=== PATIENT | female | born 1995 | race Caucasian/White ===

== ENCOUNTER 2016-06-21 17:59 | Inpatient (IN) | payer OTHER ==
[~2016-06-21] VITALS: Ht 154.9 cm; Wt 91.6 kg
[2016-06-21] VITALS (10 sets, daily range): BP systolic 93–129; BP diastolic 55–94
[~2016-06-21 17:59] MED LIST: ALBU8.5H4 IH; BUDE10.2 IH; EPIN0.3P3 IJ; ESCI10TA PO; ESCITALOPRAM 10 MG TABLET; FLUT16SP; MONT10TA22 PO; PRED20TA PO
[2016-06-21] MEDS ORDERED: IV SET PRIMARY 1 EA INFUS.SET MC ONE ×2 (18:02→18:05)
[2016-06-21] MEDS ORDERED: IV NS 0.9% 2,000 ML ONE ×2 (18:02→18:05)
[2016-06-21] MEDS ORDERED: PROPOFOL 100 ML IV ONE ×3 (18:05→23:20)
[2016-06-21] MEDS ORDERED: IV SET PRIMARY PUMP SET 1 EA INFUS.SET MC ONE ×2 (18:05→18:09)
[2016-06-21] MEDS ORDERED: Magnesium 1GM/D5W 100ML PREMIX 200 ML IV ONE ×2 (18:06→18:10)
[2016-06-21] MEDS ORDERED: IV NS 0.9% 1,000 ML IV ONE (18:06)
[2016-06-21] MEDS ORDERED: DEXAMETHASONE SOD PHOSPHATE 10 MG/ML VIAL ONE (18:10)
[2016-06-21] MEDS: PROPOFOL 100 ML IV PRN ×3 (18:15→23:44)
[2016-06-21 18:17] LABS: BASOPHILS % (AUTO) 0.4 % (0.0-2.0); DIFF TOTAL % 100 %; EOSINOPHILS # (AUTO) 0.4 /CMM (0.0-0.7); EOSINOPHILS % (AUTO) 3.7 % (0.0-6.0); HEMATOCRIT 46 % (33-45); HEMOGLOBIN 14.9 g/dL (11.5-14.8); LYMPHOCYTES # (AUTO) 2.8 /CMM (0.8-4.8); LYMPHOCYTES % (AUTO) 23.9 % (20.0-44.0); MEAN CORPUSCULAR HEMOGLOBIN 26 PG (26.0-33.0); MEAN CORPUSCULAR HGB CONC 32 g/dl (31.0-36.0); MEAN CORPUSCULAR VOLUME 80 fL (82-100); MONOCYTES # (AUTO) 0.2 /CMM (0.1-1.30); MONOCYTES % (AUTO) 1.5 % (2.0-12.0); NEUTROPHILS # (AUTO) 8.5 /CMM (1.8-8.9); NEUTROPHILS % (AUTO) 70.5 % (43.0-81.0); PLATELET COUNT (AUTO) 372 /CMM (150-450); RED BLOOD CELL COUNT(AUTO) 5.71 MIL/uL (4.0-5.2); WHITE BLOOD COUNT (AUTO) 11.9 K/uL (4.3-11.0)
[2016-06-21] MEDS ORDERED: MORPHINE SULFATE INJ 4 MG/ML DISP.SYRIN ONE (18:22)
[2016-06-21] MEDS ORDERED: LORAZEPAM INJ 2 MG/ML VIAL ONE (18:22)
[2016-06-21 18:24] LABS: ANION GAP 19 (5-14); CALCIUM, SERUM 8.9 mg/dL (8.5-10.1); CARBON DIOXIDE 20 mmol/L (21-32); CHLORIDE 101 mmol/L (98-107); GFR 71 mL/min (>60); GLUCOSE 155 mg/dL (74-106); POTASSIUM 5.4 mmol/L (3.5-5.1); SODIUM SERUM 135 mmol/L (136-145); UREA NITROGEN, BLOOD 13 mg/dL (7-18)
[2016-06-21] MEDS ORDERED: DEXAMETHASONE SOD PHOSPHATE 10 MG/ML VIAL IV ONE (18:30)
[2016-06-21] MEDS ORDERED: LORAZEPAM INJ 2 MG/ML VIAL IV ONE (18:30)
[2016-06-21] MEDS ORDERED: IPRATROPIUM NEB FS 0.5 MG/2.5 ML AMPUL.NEB NEB ONE (18:30)
[2016-06-21] MEDS ORDERED: VECURONIUM 10 MG VIAL IV ONE ×2 (18:30→20:47)
[2016-06-21] MEDS ORDERED: ETOMIDATE 2 MG/ML VIAL IV ONE ×2 (18:30→20:47)
[2016-06-21] MEDS ORDERED: ALBUTEROL FS 2.5 MG/3 ML VIAL.NEB CONTNEB ONE (18:30)
[2016-06-21] MEDS ORDERED: SUCCINYLCHOLINE CHLORIDE 20 MG/ML VIAL IV ONE ×2 (18:30→20:47)
[2016-06-21] MEDS ORDERED: MORPHINE SULFATE INJ 10 MG/ML DISP.SYRIN IV ONE (18:30)
[2016-06-21 18:32] LABS: TROPONIN I < 0.017 ng/mL (0.00-0.056)
[2016-06-21 19:14] LABS: ABG HCO3 19.3 mmol/L; ABG PCO2 46.5 mmHg (35.0-45.0); ABG PH 7.237 (7.350-7.450); ABG PO2 143.6 mmHg (75.0-100.0); ABG TOTAL HEMOGLOBIN 13.5 G/dL (12.0-16.0); ALLEN TEST Pass; AaDO2 522.9 mmHg; O2Hb 96.3 % (94.0-97.0)
[2016-06-21 19:24] LABS: PHENCYCLIDINE SCREEN,URINE NEGATIVE (NEGATIVE)
[2016-06-21 19:49] LABS: CANNABINOID, URINE POSITIVE (NEGATIVE)
[2016-06-21] MEDS ORDERED: HYDROCODONE/APAP 5/325MG 1 EACH TABLET PO PRN (20:00)
[2016-06-21] MEDS ORDERED: Z GUARD REMEDY 2 OZ OINT TP PRN (20:00)
[2016-06-21] MEDS ORDERED: MAGNESIUM HYDROXIDE 30 ML UDC PO PRN (20:00)
[2016-06-21] MEDS ORDERED: ACETAMINOPHEN 325 MG TABLET PO PRN (20:00)
[2016-06-21] MEDS: IPRATROPIUM NEB FS 0.5 MG/2.5 ML AMPUL.NEB NEB SCH (23:31)
[2016-06-21] MEDS: ALBUTEROL FS 2.5 MG/3 ML VIAL.NEB NEB SCH (23:32)
[2016-06-22] VITALS (45 sets, daily range): BP systolic 99–149; BP diastolic 54–76
[2016-06-22] MEDS: ALBUTEROL FS 2.5 MG/3 ML VIAL.NEB NEB SCH ×6 (02:58→23:42)
[2016-06-22] MEDS: IPRATROPIUM NEB FS 0.5 MG/2.5 ML AMPUL.NEB NEB SCH ×6 (02:58→23:42)
[2016-06-22] MEDS ORDERED: PROPOFOL 100 ML IV ONE (03:07)
[2016-06-22] MEDS: PROPOFOL 100 ML IV PRN ×9 (03:45→21:04)
[2016-06-22 05:20] LABS: BASOPHILS % (AUTO) 0.1 % (0.0-2.0); DIFF TOTAL % 100 %; HEMATOCRIT 42 % (33-45); HEMOGLOBIN 13.5 g/dL (11.5-14.8); LYMPHOCYTES # (AUTO) 0.8 /CMM (0.8-4.8); LYMPHOCYTES % (AUTO) 6.5 % (20.0-44.0); MEAN CORPUSCULAR HEMOGLOBIN 26 PG (26.0-33.0); MEAN CORPUSCULAR HGB CONC 33 g/dl (31.0-36.0); MEAN CORPUSCULAR VOLUME 80 fL (82-100); MONOCYTES # (AUTO) 0.1 /CMM (0.1-1.30); MONOCYTES % (AUTO) 0.9 % (2.0-12.0); NEUTROPHILS # (AUTO) 11.1 /CMM (1.8-8.9); NEUTROPHILS % (AUTO) 92.5 % (43.0-81.0); PLATELET COUNT (AUTO) 370 /CMM (150-450); RED BLOOD CELL COUNT(AUTO) 5.24 MIL/uL (4.0-5.2); WHITE BLOOD COUNT (AUTO) 11.9 K/uL (4.3-11.0)
[2016-06-22 05:40] LABS: CALCIUM, SERUM 8.6 mg/dL (8.5-10.1); CREATININE 0.8 mg/dL (0.6-1.3); POTASSIUM 3.9 mmol/L (3.5-5.1)
[2016-06-22] MEDS: ONDANSETRON HCL/PF 4 MG/2 ML VIAL IVP PRN ×2 (05:57→13:37)
[2016-06-22] MEDS: methylPREDNISolone SOD SUCC 40 MG/ML VIAL IV SCH ×2 (08:09→16:17)
[2016-06-22] MEDS: ESCITALOPRAM OXALATE (10 MG) 10 MG TABLET PO SCH (08:09)
[2016-06-22] MEDS: PANTOPRAZOLE 40 MG VIAL IV SCH (08:09)
[2016-06-22] MEDS: ENOXAPARIN SODIUM 40 MG/0.4 ML DISP.SYRIN SQ SCH (08:34)
[2016-06-22 08:58] LABS: ABG BASE EXCESS -3.4 mmol/L; ABG HCO3 19.5 mmol/L; ABG PCO2 29.6 mmHg (35.0-45.0); ABG PH 7.437 (7.350-7.450); ABG PO2 72.7 mmHg (75.0-100.0); ABG TOTAL HEMOGLOBIN 14.2 G/dL (12.0-16.0); ALLEN TEST Pass; AaDO2 322.5 mmHg; O2Hb 92.9 % (94.0-97.0)
[2016-06-22] MEDS ORDERED: LORAZEPAM INJ 2 MG/ML VIAL IV PRN (09:00)
[2016-06-22] MEDS: LORAZEPAM INJ 2 MG/ML VIAL IV PRN ×4 (09:26→21:05)
[2016-06-22] MEDS ORDERED: IV SET PRIMARY PUMP SET 1 EA INFUS.SET MC ONE ×3 (09:49→20:58)
[2016-06-22] MEDS ORDERED: FEE PK DOSING 1 MIN EA MC ONE (10:51)
[2016-06-22] MEDS ORDERED: IV NS 0.9% 250 ML IV ONE (12:58)
[2016-06-22] MEDS ORDERED: SECONDARY IV SET 1 EA INFUS.SET MC ONE ×3 (12:58→17:02)
[2016-06-22] MEDS: PIPERACILLIN /TAZOBACTAM 3.375 G in IV D5W 50 ML IV SCH ×3 (13:04→23:20)
[2016-06-22] MEDS: VANCOMYCIN 1.25 GM in IV D5W 500 ML IV SCH ×2 (14:19→21:04)
[2016-06-22 15:37] LABS: KETONES,URINE 2+ (NEGATIVE); LEUKOCYTE ESTERASE ,URINE NEGATIVE (NEGATIVE)
[2016-06-22 15:54] LABS: ADD UA MICROSCOPIC YES
[2016-06-22 15:55] LABS: ADD URINE CULTURE NO; URIC ACID CRYSTALS,URINE Rare /HPF (None Seen); WBC,URINE 0-2 /HPF (0-3)
[2016-06-22] MEDS ORDERED: Sodium Phosphate 15 MMOL in IV D5W 250 ML IV ONE (17:00)
[2016-06-22] MEDS ORDERED: ONDANSETRON HCL/PF 4 MG/2 ML VIAL IV ONE (17:30)
[2016-06-22] MEDS ORDERED: SERT100T PO (22:56)
[2016-06-22] MEDS ORDERED: ARIP20TA8 PO (22:56)
[2016-06-23] VITALS (43 sets, daily range): BP systolic 118–154; BP diastolic 53–87
[2016-06-23] MEDS: PROPOFOL 100 ML IV PRN ×10 (00:27→22:13)
[2016-06-23] MEDS: VANCOMYCIN 1.25 GM in IV D5W 500 ML IV SCH ×3 (03:06→18:48)
[2016-06-23] MEDS: ALBUTEROL FS 2.5 MG/3 ML VIAL.NEB NEB SCH ×6 (03:48→23:20)
[2016-06-23] MEDS: IPRATROPIUM NEB FS 0.5 MG/2.5 ML AMPUL.NEB NEB SCH ×6 (03:48→23:20)
[2016-06-23 05:29] LABS: BASOPHILS % (AUTO) 0.1 % (0.0-2.0); DIFF TOTAL % 100 %; HEMATOCRIT 40 % (33-45); HEMOGLOBIN 12.9 g/dL (11.5-14.8); LYMPHOCYTES # (AUTO) 1.8 /CMM (0.8-4.8); LYMPHOCYTES % (AUTO) 11.4 % (20.0-44.0); MEAN CORPUSCULAR HEMOGLOBIN 26 PG (26.0-33.0); MEAN CORPUSCULAR HGB CONC 32 g/dl (31.0-36.0); MEAN CORPUSCULAR VOLUME 80 fL (82-100); MONOCYTES # (AUTO) 0.9 /CMM (0.1-1.30); MONOCYTES % (AUTO) 5.7 % (2.0-12.0); NEUTROPHILS # (AUTO) 13.4 /CMM (1.8-8.9); NEUTROPHILS % (AUTO) 82.8 % (43.0-81.0); PLATELET COUNT (AUTO) 383 /CMM (150-450); RED BLOOD CELL COUNT(AUTO) 4.98 MIL/uL (4.0-5.2); WHITE BLOOD COUNT (AUTO) 16.2 K/uL (4.3-11.0)
[2016-06-23] MEDS: PIPERACILLIN /TAZOBACTAM 3.375 G in IV D5W 50 ML IV SCH ×3 (05:39→17:11)
[2016-06-23 05:59] LABS: CALCIUM, SERUM 8.3 mg/dL (8.5-10.1); CREATININE 0.8 mg/dL (0.6-1.3); POTASSIUM 3.5 mmol/L (3.5-5.1)
[2016-06-23] MEDS: PANTOPRAZOLE 40 MG VIAL IV SCH (08:08)
[2016-06-23] MEDS: ONDANSETRON HCL/PF 4 MG/2 ML VIAL IVP PRN (08:08)
[2016-06-23] MEDS: methylPREDNISolone SOD SUCC 40 MG/ML VIAL IV SCH ×2 (08:30→16:39)
[2016-06-23] MEDS: ESCITALOPRAM OXALATE (10 MG) 10 MG TABLET PO SCH (08:31)
[2016-06-23] MEDS: ENOXAPARIN SODIUM 40 MG/0.4 ML DISP.SYRIN SQ SCH (08:34)
[2016-06-23] MEDS ORDERED: IV SET PRIMARY PUMP SET 1 EA INFUS.SET MC ONE ×2 (09:39→14:21)
[2016-06-23] MEDS ORDERED: FUROSEMIDE 20 MG/2 ML VIAL IV ONE (10:18)
[2016-06-23] MEDS: LORAZEPAM INJ 2 MG/ML VIAL IV PRN ×3 (10:54→20:48)
[2016-06-23] MEDS ORDERED: SECONDARY IV SET 1 EA INFUS.SET MC ONE (11:02)
[2016-06-23] MEDS: Magnesium 1GM/D5W 100ML PREMIX 100 ML IV SCH ×4 (14:32→17:10)
[2016-06-23 16:01] LABS: CHOLESTEROL 172 mg/dL (<200); HDL CHOLESTEROL 41 mg/dL (40-60); LDL 95 mg/dL (0-99); TRIGLYCERIDES 241 mg/dL (30-150)
[2016-06-23 18:23] LABS: KETONES,URINE NEGATIVE (NEGATIVE); LEUKOCYTE ESTERASE ,URINE NEGATIVE (NEGATIVE); PH,URINE 5.5 (5.0-8.0)
[2016-06-23 18:56] LABS: ADD UA MICROSCOPIC YES
[2016-06-23 19:02] LABS: ADD URINE CULTURE NO; WBC,URINE 0-2 /HPF (0-3)
[2016-06-23] MEDS ORDERED: IV NS 0.9% 250 ML IV ONE (21:00)
[2016-06-24] VITALS (48 sets, daily range): BP systolic 117–137; BP diastolic 58–77
[2016-06-24] MEDS: PIPERACILLIN /TAZOBACTAM 3.375 G in IV D5W 50 ML IV SCH ×4 (00:19→17:25)
[2016-06-24] MEDS: PROPOFOL 100 ML IV PRN ×8 (00:55→21:39)
[2016-06-24] MEDS: VANCOMYCIN 1.25 GM in IV D5W 500 ML IV SCH ×2 (03:05→10:23)
[2016-06-24] MEDS: IPRATROPIUM NEB FS 0.5 MG/2.5 ML AMPUL.NEB NEB SCH ×6 (03:54→23:40)
[2016-06-24] MEDS: ALBUTEROL FS 2.5 MG/3 ML VIAL.NEB NEB SCH ×6 (03:54→23:40)
[2016-06-24 04:46] LABS: BASOPHILS % (AUTO) 0.2 % (0.0-2.0); DIFF TOTAL % 100 %; EOSINOPHILS % (AUTO) 0.1 % (0.0-6.0); HEMATOCRIT 39 % (33-45); LYMPHOCYTES # (AUTO) 2.4 /CMM (0.8-4.8); LYMPHOCYTES % (AUTO) 15.8 % (20.0-44.0); MEAN CORPUSCULAR HEMOGLOBIN 27 PG (26.0-33.0); MEAN CORPUSCULAR HGB CONC 33 g/dl (31.0-36.0); MEAN CORPUSCULAR VOLUME 80 fL (82-100); MONOCYTES # (AUTO) 0.5 /CMM (0.1-1.30); MONOCYTES % (AUTO) 3.4 % (2.0-12.0); NEUTROPHILS % (AUTO) 80.5 % (43.0-81.0); PLATELET COUNT (AUTO) 353 /CMM (150-450); RED BLOOD CELL COUNT(AUTO) 4.91 MIL/uL (4.0-5.2); WHITE BLOOD COUNT (AUTO) 14.9 K/uL (4.3-11.0)
[2016-06-24 04:58] LABS: CALCIUM, SERUM 7.9 mg/dL (8.5-10.1); CREATININE 0.7 mg/dL (0.6-1.3); PHOSPHORUS 4.8 mg/dL (2.5-4.9); POTASSIUM 3.3 mmol/L (3.5-5.1)
[2016-06-24] MEDS: PANTOPRAZOLE 40 MG VIAL IV SCH (07:58)
[2016-06-24] MEDS: methylPREDNISolone SOD SUCC 40 MG/ML VIAL IV SCH ×2 (07:58→17:25)
[2016-06-24] MEDS: ENOXAPARIN SODIUM 40 MG/0.4 ML DISP.SYRIN SQ SCH (08:02)
[2016-06-24 08:39] LABS: ABG BASE EXCESS 2.9 mmol/L; ABG HCO3 25.7 mmol/L; ABG PCO2 33.9 mmHg (35.0-45.0); ABG PH 7.498 (7.350-7.450); ALLEN TEST Pass; AaDO2 373.6 mmHg; O2Hb 85.8 % (94.0-97.0)
[2016-06-24] MEDS ORDERED: IV SET PRIMARY PUMP SET 1 EA INFUS.SET MC ONE ×2 (09:19→19:36)
[2016-06-24] MEDS: POTASSIUM CL. PREMIX PERIPHER. 50 ML IV SCH ×4 (09:55→13:27)
[2016-06-24] MEDS: LORAZEPAM INJ 2 MG/ML VIAL IV PRN (11:12)
[2016-06-24] MEDS: VANCOMYCIN 1 GM in IV D5W 250 ML IV SCH (17:25)
[2016-06-25] VITALS (36 sets, daily range): BP systolic 118–143; BP diastolic 61–78
[2016-06-25] MEDS: PIPERACILLIN /TAZOBACTAM 3.375 G in IV D5W 50 ML IV SCH ×5 (00:06→23:31)
[2016-06-25] MEDS: PROPOFOL 100 ML IV PRN ×11 (00:08→23:06)
[2016-06-25] MEDS ORDERED: HYDROMORPHONE 1 MG/1 ML DISP.SYRIN ONE (00:22)
[2016-06-25] MEDS: VANCOMYCIN 1 GM in IV D5W 250 ML IV SCH ×3 (01:24→17:24)
[2016-06-25] MEDS: ALBUTEROL FS 2.5 MG/3 ML VIAL.NEB NEB SCH ×6 (03:59→23:46)
[2016-06-25] MEDS: IPRATROPIUM NEB FS 0.5 MG/2.5 ML AMPUL.NEB NEB SCH ×6 (03:59→23:46)
[2016-06-25 04:52] LABS: BASOPHILS # (AUTO) 0.1 /CMM (0.0-0.2); BASOPHILS % (AUTO) 0.4 % (0.0-2.0); DIFF TOTAL % 100 %; EOSINOPHILS % (AUTO) 0.1 % (0.0-6.0); HEMATOCRIT 39 % (33-45); HEMOGLOBIN 12.7 g/dL (11.5-14.8); LYMPHOCYTES # (AUTO) 2.2 /CMM (0.8-4.8); MEAN CORPUSCULAR HEMOGLOBIN 26 PG (26.0-33.0); MEAN CORPUSCULAR HGB CONC 32 g/dl (31.0-36.0); MEAN CORPUSCULAR VOLUME 81 fL (82-100); MONOCYTES # (AUTO) 0.9 /CMM (0.1-1.30); NEUTROPHILS # (AUTO) 9.2 /CMM (1.8-8.9); NEUTROPHILS % (AUTO) 74.5 % (43.0-81.0); PLATELET COUNT (AUTO) 328 /CMM (150-450); RED BLOOD CELL COUNT(AUTO) 4.89 MIL/uL (4.0-5.2); WHITE BLOOD COUNT (AUTO) 12.4 K/uL (4.3-11.0)
[2016-06-25 05:03] LABS: CALCIUM, SERUM 8.2 mg/dL (8.5-10.1); CREATININE 0.7 mg/dL (0.6-1.3); PHOSPHORUS 4.6 mg/dL (2.5-4.9); POTASSIUM 4.1 mmol/L (3.5-5.1)
[2016-06-25] MEDS ORDERED: IV SET PRIMARY PUMP SET 1 EA INFUS.SET MC ONE ×2 (07:57→23:11)
[2016-06-25] MEDS: PANTOPRAZOLE 40 MG VIAL IV SCH (08:03)
[2016-06-25] MEDS: methylPREDNISolone SOD SUCC 40 MG/ML VIAL IV SCH ×2 (08:03→16:58)
[2016-06-25] MEDS: ENOXAPARIN SODIUM 40 MG/0.4 ML DISP.SYRIN SQ SCH (08:08)
[2016-06-25 09:23] LABS: ABG BASE EXCESS 1.1 mmol/L; ABG HCO3 24.3 mmol/L; ABG PCO2 34.6 mmHg (35.0-45.0); ABG PH 7.465 (7.350-7.450); ABG PO2 58.6 mmHg (75.0-100.0); ABG TOTAL HEMOGLOBIN 13.8 G/dL (12.0-16.0); AaDO2 367.2 mmHg; O2Hb 88.5 % (94.0-97.0)
[2016-06-25] MEDS: LORAZEPAM INJ 2 MG/ML VIAL IV PRN ×2 (09:23→16:27)
[2016-06-25] MEDS ORDERED: IV NS 0.9% 250 ML IV ONE (11:53)
[2016-06-25] MEDS ORDERED: ENOXAPARIN SODIUM 40 MG/0.4 ML DISP.SYRIN SQ SCH (13:30)
[2016-06-25] MEDS ORDERED: SECONDARY IV SET 1 EA INFUS.SET MC ONE (23:12)
[2016-06-26] VITALS (36 sets, daily range): BP systolic 101–148; BP diastolic 50–88
[2016-06-26] MEDS: VANCOMYCIN 1 GM in IV D5W 250 ML IV SCH ×3 (01:39→18:03)
[2016-06-26] MEDS: PROPOFOL 100 ML IV PRN ×4 (02:30→12:00)
[2016-06-26] MEDS: ALBUTEROL FS 2.5 MG/3 ML VIAL.NEB NEB SCH ×6 (03:07→23:25)
[2016-06-26] MEDS: IPRATROPIUM NEB FS 0.5 MG/2.5 ML AMPUL.NEB NEB SCH ×6 (03:07→23:25)
[2016-06-26] MEDS: PIPERACILLIN /TAZOBACTAM 3.375 G in IV D5W 50 ML IV SCH ×4 (05:14→23:59)
[2016-06-26 05:22] LABS: BASOPHILS % (AUTO) 0.1 % (0.0-2.0); DIFF TOTAL % 100 %; EOSINOPHILS % (AUTO) 0.1 % (0.0-6.0); HEMATOCRIT 41 % (33-45); HEMOGLOBIN 13.1 g/dL (11.5-14.8); LYMPHOCYTES # (AUTO) 2.3 /CMM (0.8-4.8); LYMPHOCYTES % (AUTO) 18.7 % (20.0-44.0); MEAN CORPUSCULAR HEMOGLOBIN 26 PG (26.0-33.0); MEAN CORPUSCULAR HGB CONC 32 g/dl (31.0-36.0); MEAN CORPUSCULAR VOLUME 80 fL (82-100); MONOCYTES # (AUTO) 0.9 /CMM (0.1-1.30); MONOCYTES % (AUTO) 7.3 % (2.0-12.0); NEUTROPHILS % (AUTO) 73.8 % (43.0-81.0); PLATELET COUNT (AUTO) 334 /CMM (150-450); RED BLOOD CELL COUNT(AUTO) 5.07 MIL/uL (4.0-5.2); WHITE BLOOD COUNT (AUTO) 12.1 K/uL (4.3-11.0)
[2016-06-26 05:29] LABS: CALCIUM, SERUM 8.5 mg/dL (8.5-10.1); CREATININE 0.7 mg/dL (0.6-1.3); PHOSPHORUS 3.9 mg/dL (2.5-4.9); POTASSIUM 3.9 mmol/L (3.5-5.1)
[2016-06-26] MEDS: PANTOPRAZOLE 40 MG VIAL IV SCH (08:00)
[2016-06-26] MEDS: methylPREDNISolone SOD SUCC 40 MG/ML VIAL IV SCH ×2 (08:00→17:10)
[2016-06-26] MEDS: ENOXAPARIN SODIUM 40 MG/0.4 ML DISP.SYRIN SQ SCH (08:06)
[2016-06-26] MEDS: LORAZEPAM INJ 2 MG/ML VIAL IV PRN ×4 (08:28→19:02)
[2016-06-26] MEDS ORDERED: IV NS 0.9% 250 ML IV ONE ×2 (11:17→20:36)
[2016-06-26] MEDS ORDERED: IV SET PRIMARY PUMP SET 1 EA INFUS.SET MC ONE (11:56)
[2016-06-26 13:32] LABS: ABG BASE EXCESS -0.9 mmol/L; ABG HCO3 22.9 mmol/L; ABG PCO2 35.3 mmHg (35.0-45.0); ABG PO2 101.3 mmHg (75.0-100.0); ABG TOTAL HEMOGLOBIN 13.9 G/dL (12.0-16.0); AaDO2 287.7 mmHg; O2Hb 95.9 % (94.0-97.0)
[2016-06-27] VITALS (40 sets, daily range): BP systolic 96–129; BP diastolic 41–87
[2016-06-27] MEDS: LORAZEPAM INJ 2 MG/ML VIAL IV PRN ×2 (00:13→07:50)
[2016-06-27] MEDS: VANCOMYCIN 1 GM in IV D5W 250 ML IV SCH ×2 (02:01→09:24)
[2016-06-27] MEDS: ALBUTEROL FS 2.5 MG/3 ML VIAL.NEB NEB SCH ×5 (03:07→19:37)
[2016-06-27] MEDS: IPRATROPIUM NEB FS 0.5 MG/2.5 ML AMPUL.NEB NEB SCH ×5 (03:07→19:36)
[2016-06-27 04:53] LABS: BASOPHILS % (AUTO) 0.2 % (0.0-2.0); DIFF TOTAL % 100 %; EOSINOPHILS % (AUTO) 0.1 % (0.0-6.0); HEMATOCRIT 43 % (33-45); HEMOGLOBIN 13.9 g/dL (11.5-14.8); LYMPHOCYTES % (AUTO) 13.5 % (20.0-44.0); MEAN CORPUSCULAR HEMOGLOBIN 26 PG (26.0-33.0); MEAN CORPUSCULAR HGB CONC 33 g/dl (31.0-36.0); MEAN CORPUSCULAR VOLUME 80 fL (82-100); MONOCYTES # (AUTO) 1.1 /CMM (0.1-1.30); NEUTROPHILS # (AUTO) 11.9 /CMM (1.8-8.9); NEUTROPHILS % (AUTO) 79.2 % (43.0-81.0); PLATELET COUNT (AUTO) 341 /CMM (150-450); RED BLOOD CELL COUNT(AUTO) 5.35 MIL/uL (4.0-5.2)
[2016-06-27 05:02] LABS: CREATININE 0.7 mg/dL (0.6-1.3); POTASSIUM 3.5 mmol/L (3.5-5.1)
[2016-06-27] MEDS: PIPERACILLIN /TAZOBACTAM 3.375 G in IV D5W 50 ML IV SCH ×2 (05:34→11:32)
[2016-06-27] MEDS: PANTOPRAZOLE 40 MG VIAL IV SCH ×2 (08:04→20:15)
[2016-06-27] MEDS: methylPREDNISolone SOD SUCC 40 MG/ML VIAL IV SCH ×2 (08:05→17:45)
[2016-06-27] MEDS: ENOXAPARIN SODIUM 40 MG/0.4 ML DISP.SYRIN SQ SCH (08:06)
[2016-06-27] MEDS ORDERED: DC PROPOFOL WHEN EXTUBATED XX PRN (10:00)
[2016-06-27] MEDS: MORPHINE SULFATE INJ 4 MG/ML DISP.SYRIN IV PRN ×2 (11:45→22:03)
[2016-06-27 12:02] LABS: ABG BASE EXCESS -2.3 mmol/L; ABG HCO3 20.6 mmol/L; ABG PCO2 30.4 mmHg (35.0-45.0); ABG PH 7.448 (7.350-7.450); ABG PO2 83.9 mmHg (75.0-100.0); ABG TOTAL HEMOGLOBIN 14.9 G/dL (12.0-16.0); ALLEN TEST Pass; AaDO2 238.4 mmHg; O2Hb 94.7 % (94.0-97.0)
[2016-06-27] MEDS ORDERED: SECONDARY IV SET 1 EA INFUS.SET MC ONE (12:35)
[2016-06-27] MEDS: LEVOFLOXACIN 500 MG /D5W 100ML 500 MG in PREMIX 1 EA IV SCH (12:38)
[2016-06-27] MEDS ORDERED: LEVOFLOXACIN (500MG) 500 MG TABLET PO SCH (13:00)
[2016-06-27] MEDS ORDERED: ACETAMINOPHEN 650 MG/SUPP.RECT RC PRN (14:30)
[2016-06-27] MEDS: ONDANSETRON HCL/PF 4 MG/2 ML VIAL IVP PRN (21:26)
[2016-06-27] MEDS: ZOLPIDEM TARTRATE 5 MG TABLET PO PRN (23:35)
[2016-06-28] VITALS (26 sets, daily range): BP systolic 89–125; BP diastolic 37–75
[2016-06-28] MEDS: ALBUTEROL FS 2.5 MG/3 ML VIAL.NEB NEB SCH ×8 (00:21→23:19)
[2016-06-28] MEDS: IPRATROPIUM NEB FS 0.5 MG/2.5 ML AMPUL.NEB NEB SCH ×8 (00:21→23:19)
[2016-06-28 04:49] LABS: BASOPHILS % (AUTO) 0.1 % (0.0-2.0); DIFF TOTAL % 100 %; EOSINOPHILS % (AUTO) 0.1 % (0.0-6.0); HEMATOCRIT 44 % (33-45); LYMPHOCYTES # (AUTO) 2.2 /CMM (0.8-4.8); LYMPHOCYTES % (AUTO) 15.3 % (20.0-44.0); MEAN CORPUSCULAR HEMOGLOBIN 26 PG (26.0-33.0); MEAN CORPUSCULAR HGB CONC 32 g/dl (31.0-36.0); MEAN CORPUSCULAR VOLUME 80 fL (82-100); MONOCYTES # (AUTO) 0.1 /CMM (0.1-1.30); MONOCYTES % (AUTO) 0.9 % (2.0-12.0); NEUTROPHILS % (AUTO) 83.6 % (43.0-81.0); PLATELET COUNT (AUTO) 366 /CMM (150-450); RED BLOOD CELL COUNT(AUTO) 5.47 MIL/uL (4.0-5.2); WHITE BLOOD COUNT (AUTO) 14.3 K/uL (4.3-11.0)
[2016-06-28 04:53] LABS: CALCIUM, SERUM 9.6 mg/dL (8.5-10.1); CREATININE 0.7 mg/dL (0.6-1.3)
[2016-06-28] MEDS ORDERED: IV NS 0.9% 250 ML IV ONE (04:53)
[2016-06-28] MEDS: MORPHINE SULFATE INJ 4 MG/ML DISP.SYRIN IV PRN ×2 (05:01→09:37)
[2016-06-28 05:03] LABS: POTASSIUM 4.4 mmol/L (3.5-5.1)
[2016-06-28] MEDS: methylPREDNISolone SOD SUCC 40 MG/ML VIAL IV SCH (08:06)
[2016-06-28] MEDS: PANTOPRAZOLE 40 MG VIAL IV SCH ×2 (08:06→20:54)
[2016-06-28] MEDS: ENOXAPARIN SODIUM 40 MG/0.4 ML DISP.SYRIN SQ SCH (08:07)
[2016-06-28] MEDS ORDERED: IBUPROFEN 400 MG TABLET PO PRN (11:30)
[2016-06-28] MEDS: LEVOFLOXACIN 500 MG /D5W 100ML 500 MG in PREMIX 1 EA IV SCH (12:19)
[2016-06-28] MEDS: HYDROCODONE/APAP 5/325MG 1 EACH TABLET PO PRN (16:45)
[2016-06-28] MEDS: ONDANSETRON HCL/PF 4 MG/2 ML VIAL IVP PRN (21:33)
[2016-06-28] MEDS: ZOLPIDEM TARTRATE 5 MG TABLET PO PRN (21:33)
[2016-06-29] VITALS: BP 106/76
[2016-06-29] MEDS: HYDROCODONE/APAP 5/325MG 1 EACH TABLET PO PRN ×5 (01:47→21:39)
[2016-06-29] MEDS: ONDANSETRON HCL/PF 4 MG/2 ML VIAL IVP PRN ×4 (01:48→21:38)
[2016-06-29] MEDS: ALBUTEROL FS 2.5 MG/3 ML VIAL.NEB NEB SCH ×7 (03:20→23:56)
[2016-06-29] MEDS: IPRATROPIUM NEB FS 0.5 MG/2.5 ML AMPUL.NEB NEB SCH ×6 (03:21→23:56)
[2016-06-29 04:00] VITALS: BP 100/60
[2016-06-29 06:58] LABS: ALBUMIN 3.4 g/dL (3.4-5.0); BILIRUBIN,TOTAL 0.4 mg/dL (0.2-1.0); CREATININE 0.7 mg/dL (0.6-1.3); POTASSIUM 3.3 mmol/L (3.5-5.1); TOTAL PROTEIN, SERUM 7.5 g/dL (6.4-8.2)
[2016-06-29 07:09] LABS: BASOPHILS % (AUTO) 0.1 % (0.0-2.0); DIFF TOTAL % 100 %; EOSINOPHILS # (AUTO) 0.1 /CMM (0.0-0.7); EOSINOPHILS % (AUTO) 0.8 % (0.0-6.0); HEMATOCRIT 44 % (33-45); HEMOGLOBIN 14.3 g/dL (11.5-14.8); LYMPHOCYTES # (AUTO) 2.2 /CMM (0.8-4.8); LYMPHOCYTES % (AUTO) 14.1 % (20.0-44.0); MEAN CORPUSCULAR HEMOGLOBIN 26 PG (26.0-33.0); MEAN CORPUSCULAR HGB CONC 32 g/dl (31.0-36.0); MEAN CORPUSCULAR VOLUME 80 fL (82-100); MONOCYTES # (AUTO) 0.8 /CMM (0.1-1.30); NEUTROPHILS # (AUTO) 12.2 /CMM (1.8-8.9); PLATELET COUNT (AUTO) 381 /CMM (150-450); RED BLOOD CELL COUNT(AUTO) 5.53 MIL/uL (4.0-5.2); WHITE BLOOD COUNT (AUTO) 15.3 K/uL (4.3-11.0)
[2016-06-29 08:00] VITALS: BP 124/76
[2016-06-29] MEDS: predniSONE 20 MG TABLET PO SCH (08:11)
[2016-06-29] MEDS: PANTOPRAZOLE 40 MG VIAL IV SCH ×2 (08:11→21:38)
[2016-06-29] MEDS: ENOXAPARIN SODIUM 40 MG/0.4 ML DISP.SYRIN SQ SCH (08:19)
[2016-06-29 12:00] VITALS: BP 110/65
[2016-06-29] MEDS ORDERED: POTASSIUM CHLORIDE 20 MEQ TAB.PRT.SR PO SCH (12:00)
[2016-06-29] MEDS ORDERED: IV NS 0.9% 250 ML IV ONE (12:14)
[2016-06-29] MEDS ORDERED: SECONDARY IV SET 1 EA INFUS.SET MC ONE (12:14)
[2016-06-29] MEDS ORDERED: IV SET PRIMARY PUMP SET 1 EA INFUS.SET MC ONE (12:14)
[2016-06-29] MEDS: LEVOFLOXACIN 500 MG /D5W 100ML 500 MG in PREMIX 1 EA IV SCH (12:19)
[2016-06-29 16:00] VITALS: BP 112/73
[2016-06-29 20:00] VITALS: BP 121/78
[2016-06-29] MEDS ORDERED: ARIPIPRAZOLE 5 MG TABLET PO SCH (22:00)
[2016-06-29] MEDS ORDERED: SERTRALINE HCL 50 MG TABLET PO SCH (22:00)
[2016-06-29] MEDS: ZOLPIDEM TARTRATE 5 MG TABLET PO PRN (22:52)
[2016-06-30] VITALS: BP 94/59
[2016-06-30] MEDS: ONDANSETRON HCL/PF 4 MG/2 ML VIAL IVP PRN ×3 (03:04→13:15)
[2016-06-30] MEDS: ALBUTEROL FS 2.5 MG/3 ML VIAL.NEB NEB SCH ×4 (03:28→14:56)
[2016-06-30] MEDS: IPRATROPIUM NEB FS 0.5 MG/2.5 ML AMPUL.NEB NEB SCH ×4 (03:29→14:55)
[2016-06-30] MEDS: HYDROCODONE/APAP 5/325MG 1 EACH TABLET PO PRN ×3 (03:51→13:18)
[2016-06-30 04:00] VITALS: BP 121/82
[2016-06-30] MEDS ORDERED: IV NS 0.9% 250 ML IV ONE (05:22)
[2016-06-30 07:25] LABS: CREATININE 0.8 mg/dL (0.6-1.3); POTASSIUM 3.2 mmol/L (3.5-5.1)
[2016-06-30 08:00] VITALS: BP 117/82
[2016-06-30] MEDS ORDERED: Medication Not On Formulary EA (Sertraline Hcl (Zoloft) 1 TAB) PO SCH ×2 (09:00)
[2016-06-30] MEDS: predniSONE 20 MG TABLET PO SCH (09:04)
[2016-06-30] MEDS: ENOXAPARIN SODIUM 40 MG/0.4 ML DISP.SYRIN SQ SCH (09:05)
[2016-06-30] MEDS: PANTOPRAZOLE 40 MG VIAL IV SCH (09:05)
[2016-06-30] MEDS ORDERED: LEVO500T15 PO ×2 (11:53→12:12)
[2016-06-30 12:00] VITALS: BP 108/83
[2016-06-30] MEDS: LEVOFLOXACIN 500 MG /D5W 100ML 500 MG in PREMIX 1 EA IV SCH (12:52)
[2016-06-30] MEDS: POTASSIUM CHLORIDE 20 MEQ TAB.PRT.SR PO SCH ×2 (13:18→14:29)
== END 2016-06-30 16:46 | disposition home or self-care (01) | DRG 130 ==
LOC: ER 18:01 → ICU 19:49 → TELE1 06-28 17:50
PROVIDERS: ADMIT Family Medicine; ATTEND Family Medicine
PROC: 05H533Z Insertion of Infusion Device into Right Subclavian Vein, Percutaneous Approach (ICD-10-PCS; principal; 2016-06-21)
PROC: 5A1955Z Respiratory Ventilation, Greater than 96 Consecutive Hours (ICD-10-PCS; 2016-06-21)
PROC: 0BH17EZ Insertion of Endotracheal Airway into Trachea, Via Natural or Artificial Opening (ICD-10-PCS; 2016-06-21)
DX: J96.01 Acute respiratory failure with hypoxia (principal); J69.0 Pneumonitis due to inhalation of food and vomit; I50.33 Acute on chronic diastolic (congestive) heart failure; J45.901 Unspecified asthma with (acute) exacerbation; E87.5 Hyperkalemia; N39.0 Urinary tract infection, site not specified; D75.1 Secondary polycythemia; J96.02 Acute respiratory failure with hypercapnia; F31.9 Bipolar disorder, unspecified; F41.9 Anxiety disorder, unspecified; R73.9 Hyperglycemia, unspecified; J20.9 Acute bronchitis, unspecified; B96.20 Unspecified Escherichia coli [E. coli] as the cause of diseases classified elsewhere; F19.10 Other psychoactive substance abuse, uncomplicated; E66.9 Obesity, unspecified; Z68.38 Body mass index [BMI] 38.0-38.9, adult; F11.23 Opioid dependence with withdrawal; J98.11 Atelectasis
CPT/HCPCS: 31720; 36415; 36600; 71010-TC; 71250-TC; 72192-TC; 74150-TC; 80048-TC; 80053-TC; 80061-TC; 80202-TC; 80305; 81000-TC; 82272-TC; 82803-TC; 83735-TC; 83880; 84100-TC; 84484-TC; 84703-TC; 85025-TC; 87040-TC; 87081-TC; 87086-TC; 87186-TC; 93307-TC; 93970-TC; 94003-TC; 94760-TC; 94799-TC; 99082-TC; A4216; A4606; A6253; A6402; A9563; C1751; C9113; J0330; J1100; J1170; J1650; J1940; J1956; J2060; J2270; J2405; J2543; J2920; J3370; J3475; J3480; J3490; J7030; J7050; J7060; Z7610

== ENCOUNTER 2016-07-14 20:14 | Emergency (ER) | payer OTHER ==
[~2016-07-14] VITALS: Ht 157.5 cm; Wt 91.6 kg
[~2016-07-14 20:14] MED LIST changes: +ARIP20TA8 PO; +LEVO500T15 PO; +SERT100T PO
[2016-07-14] MEDS ORDERED: OLANZAPINE 10 MG VIAL IM ONE ×2 (20:30)
[2016-07-14] MEDS ORDERED: WATER FOR INJECTION,STERILE 10 ML ONE (20:30)
[2016-07-14] MEDS ORDERED: ACETAMINOPHEN 325 MG TABLET PO ONE ×2 (21:00→21:30)
[2016-07-14] MEDS ORDERED: ACETAMINOPHEN ES 500 MG TABLET ONE (21:18)
[2016-07-14] MEDS ORDERED: diphenhydrAMINE HCL 50 MG CAPSULE ONE (21:18)
[2016-07-14] MEDS ORDERED: KETOROLAC TROMETHAMINE INJ 30 MG/ML VIAL ONE (21:19)
[2016-07-14] MEDS ORDERED: diphenhydrAMINE HCL 50 MG/ML VIAL IV ONE (21:30)
[2016-07-14] MEDS ORDERED: KETOROLAC TROMETHAMINE INJ 30 MG/ML VIAL IM ONE (21:30)
[2016-07-14] MEDS ORDERED: diphenhydrAMINE HCL 25 MG CAPSULE PO ONE (21:30)
[2016-07-14] MEDS ORDERED: IBUPROFEN 600 MG TABLET PO ONE (21:30)
[2016-07-14] MEDS ORDERED: KETOROLAC TROMETHAMINE INJ 30 MG/ML VIAL IV ONE (21:30)
[2016-07-14 21:48] VITALS: BP 112/70
[2016-07-14] MEDS ORDERED: diphenhydrAMINE HCL 50 MG CAPSULE PO ONE (22:00)
== END 2016-07-14 21:48 | disposition home or self-care (01) ==
LOC: ER 20:17
DX: F41.9 Anxiety disorder, unspecified (principal); R51 Headache; J45.909 Unspecified asthma, uncomplicated; F17.200 Nicotine dependence, unspecified, uncomplicated; Z88.8 Allergy status to other drugs, medicaments and biological substances
CPT/HCPCS: 96372; 99284; A4606; J3490; Q0163; Z7610; J1885

== ENCOUNTER 2016-08-04 19:57 | Emergency (ER) | payer OTHER ==
[~2016-08-04] VITALS: Ht 157.5 cm; Wt 97.5 kg
[2016-08-04 20:06] VITALS: BP 150/96
[2016-08-04 20:44] LABS: CALCIUM, SERUM 9.5 mg/dL (8.5-10.1); CREATININE 0.8 mg/dL (0.6-1.3); POTASSIUM 3.7 mmol/L (3.5-5.1)
== END 2016-08-04 21:53 | disposition home or self-care (01) ==
LOC: ER 20:02
DX: M54.9 Dorsalgia, unspecified (principal); M94.0 Chondrocostal junction syndrome [Tietze]; J45.909 Unspecified asthma, uncomplicated; J84.10 Pulmonary fibrosis, unspecified; F41.9 Anxiety disorder, unspecified; Z91.018 Allergy to other foods; Z91.048 Other nonmedicinal substance allergy status; F17.200 Nicotine dependence, unspecified, uncomplicated
CPT/HCPCS: 36415; 71020; 80048; 85378; 99285; A4606; Z7610

== ENCOUNTER 2017-01-25 23:11 | Emergency (ER) | payer OTHER ==
[~2017-01-25] VITALS: Ht 157.5 cm; Wt 102.1 kg
--- NOTE | 2017-01-25 23:20 | NUR ---
TO BED 3 A 21 YO FEMALE PATIENT W C/O SOB X TODAY, ON 1 L/MIN O2 NC AT HOME W/ REPORT O2 SAT 87%. UPON ARRIVAL TO ER, PATIENT IS AAOX3, BREATHING EVEN AND UNLABORED. 98% O2 SATURATION ON 1LPM O2 CANNULA. NONDIAPHORETIC. VSS. COMFORT MEASURES RENDERED. KEPT HOB ELEVATED. AWAITING FOR ER MD LORA.
--- NOTE | 2017-01-25 23:30 | NUR ---
TORI LUA AT BEDSIDE TO EVAL.
[2017-01-25] MEDS ORDERED: predniSONE 20 MG TABLET ONE (23:44)
[2017-01-26] MEDS ORDERED: ALBUTEROL FS 2.5 MG/3 ML VIAL.NEB NEB ONE
[2017-01-26] MEDS ORDERED: IPRATROPIUM NEB FS 0.5 MG/2.5 ML AMPUL.NEB NEB ONE
[2017-01-26] MEDS ORDERED: predniSONE 20 MG TABLET PO ONE
[2017-01-26] MEDS ORDERED: ALBUTEROL FS 2.5 MG/3 ML VIAL.NEB ONE (00:09)
[2017-01-26] MEDS ORDERED: IPRATROPIUM NEB FS 0.5 MG/2.5 ML AMPUL.NEB ONE (00:09)
--- NOTE | 2017-01-26 00:18 | NUR ---
Ongoing breathing treatment by RT.
--- NOTE | 2017-01-26 01:06 | NUR ---
DPatient discharged to home in stable condition. Written and verbal after care instructions given. Patient verbalizes understanding of instruction. pt ambulatory with a steady gait. pt accompanied with family. pt d/c with personal [employer] tank on n/c.
[2017-01-26 01:08] VITALS: BP 116/78
== END 2017-01-26 01:10 | disposition home or self-care (01) ==
LOC: ER 23:14
DX: F41.9 Anxiety disorder, unspecified (principal); E66.01 Morbid (severe) obesity due to excess calories; J45.909 Unspecified asthma, uncomplicated; J84.10 Pulmonary fibrosis, unspecified; Z88.8 Allergy status to other drugs, medicaments and biological substances
CPT/HCPCS: 71010-TC; A4606; Z7610

== ENCOUNTER 2017-01-26 08:10 | Emergency (ER) | payer OTHER ==
[~2017-01-26] VITALS: Ht 157.5 cm; Wt 112.5 kg
--- NOTE | 2017-01-26 08:12 | NUR ---
BIB FAMILY FOR SOB. PATIEN ARRIVED AAO3. APPEARS IN NO APPARENT DISTRESS. RESPIRATION EVEN AND UNLABORED. PATIENT ON O2 VIA NC 2LPM SATING 95%. SKIN IS WARM TO TOUCH AND NON DIAPHORETIC. AFEBRILE. VSS
[2017-01-26] MEDS ORDERED: ALBUTEROL FS 2.5 MG/3 ML VIAL.NEB ONE (08:42)
[2017-01-26] MEDS ORDERED: IPRATROPIUM NEB FS 0.5 MG/2.5 ML AMPUL.NEB ONE (08:42)
[2017-01-26] MEDS ORDERED: predniSONE 20 MG TABLET ONE ×2 (08:45→09:00)
--- NOTE | 2017-01-26 08:50 | NUR ---
BREATHING TREATMENT ON GOING
[2017-01-26] MEDS ORDERED: ALBUTEROL FS 2.5 MG/3 ML VIAL.NEB NEB ONE (09:00)
[2017-01-26] MEDS ORDERED: IPRATROPIUM NEB FS 0.5 MG/2.5 ML AMPUL.NEB NEB ONE (09:00)
[2017-01-26] MEDS ORDERED: predniSONE 20 MG TABLET PO ONE (09:00)
[2017-01-26 09:56] VITALS: BP 120/70
--- NOTE | 2017-01-26 09:57 | NUR ---
Patient discharged to home in stable condition. Written and verbal after care instructions given. Patient verbalizes understanding of instruction. Patient with strady gait, discharged with own o2 tank @2lpm.
== END 2017-01-26 09:58 | disposition home or self-care (01) ==
LOC: ER 08:15
DX: J45.901 Unspecified asthma with (acute) exacerbation (principal); F32.9 Major depressive disorder, single episode, unspecified; F41.9 Anxiety disorder, unspecified; J84.10 Pulmonary fibrosis, unspecified; Z99.81 Dependence on supplemental oxygen; Z88.8 Allergy status to other drugs, medicaments and biological substances; F17.200 Nicotine dependence, unspecified, uncomplicated
CPT/HCPCS: 71010-TC; A4606; Z7610

== ENCOUNTER 2017-03-25 19:04 | Emergency (ER) | payer OTHER ==
[~2017-03-25] VITALS: Ht 157.5 cm; Wt 108.9 kg
[~2017-03-25 19:04] MED LIST changes: -FLUT16SP; +FLUT16SP BNOSTRILS
--- NOTE | 2017-03-25 19:15 | NUR ---
TO BED 1 A 21 YO FEMALE FROM HOME BIBSELF W C/O SOB AND WHEEZING SINCE LAST NIGHT. PATIENT WITH O2 VIA NC AT 2LPM, PATIENT WITH HX OF PULMONARY FIBROSIS. VSS. AFEBRILE. KEPT HOB ELEVATED. COMFORT MEASURES RENDERED. AWAITING FOR ER MD LORA.
--- NOTE | 2017-03-25 19:17 | NUR ---
Dr Kat at bedside to traci.
[2017-03-25] MEDS ORDERED: predniSONE 20 MG TABLET ONE (19:23)
[2017-03-25] MEDS ORDERED: ALBUTEROL FS 2.5 MG/3 ML VIAL.NEB NEB ONE (19:30)
[2017-03-25] MEDS ORDERED: IPRATROPIUM NEB FS 0.5 MG/2.5 ML AMPUL.NEB NEB ONE (19:30)
[2017-03-25] MEDS ORDERED: predniSONE 20 MG TABLET PO ONE (19:30)
[2017-03-25] MEDS ORDERED: IPRATROPIUM NEB FS 0.5 MG/2.5 ML AMPUL.NEB ONE (19:32)
[2017-03-25] MEDS ORDERED: ALBUTEROL FS 2.5 MG/3 ML VIAL.NEB ONE (19:32)
--- NOTE | 2017-03-25 19:44 | NUR ---
ONGOING BREATHING TREATMENT.
--- NOTE | 2017-03-25 20:15 | NUR ---
PT REPORTS FEELING BETTER, RELIEF FROM SOB. Patient discharged to home in stable condition. Written and verbal after care instructions given. Patient verbalizes understanding of instruction. Pt ambulatory with a steady gait.
[2017-03-25 20:35] VITALS: BP 123/82
== END 2017-03-25 20:15 | disposition home or self-care (01) ==
LOC: ER 19:06
DX: J45.901 Unspecified asthma with (acute) exacerbation (principal); F17.200 Nicotine dependence, unspecified, uncomplicated; F41.9 Anxiety disorder, unspecified; J84.10 Pulmonary fibrosis, unspecified; Z88.8 Allergy status to other drugs, medicaments and biological substances
CPT/HCPCS: 94640 ×2; 99284; A4606; J7512; Z7610

== ENCOUNTER 2017-03-28 19:30 | Emergency (ER) | payer OTHER ==
[~2017-03-28] VITALS: Ht 157.5 cm; Wt 114.8 kg
[2017-03-28] MEDS ORDERED: IPRATROPIUM NEB FS 0.5 MG/2.5 ML AMPUL.NEB ONE (20:39)
[2017-03-28] MEDS ORDERED: ALBUTEROL FS 2.5 MG/3 ML VIAL.NEB ONE (20:39)
--- NOTE | 2017-03-28 20:45 | NUR ---
MEDICATED PT ORDERED
--- NOTE | 2017-03-28 20:45 | NUR ---
RT AT BED SIDE FOR BREATHING TREATMENT
[2017-03-28 20:56] LABS: BASOPHILS % (AUTO) 0.3 % (0.0-2.0); EOSINOPHILS # (AUTO) 0.4 /CMM (0.0-0.7); EOSINOPHILS % (AUTO) 5.2 % (0.0-6.0); HEMATOCRIT 37 % (33-45); LYMPHOCYTES % (AUTO) 12.8 % (20.0-44.0); MEAN CORPUSCULAR HEMOGLOBIN 26 PG (26.0-33.0); MEAN CORPUSCULAR HGB CONC 33 g/dl (31.0-36.0); MEAN CORPUSCULAR VOLUME 80 fL (82-100); MONOCYTES # (AUTO) 0.2 /CMM (0.1-1.30); MONOCYTES % (AUTO) 2.6 % (2.0-12.0); NEUTROPHILS # (AUTO) 6.5 /CMM (1.8-8.9); NEUTROPHILS % (AUTO) 79.1 % (43.0-81.0); PLATELET COUNT (AUTO) 355 /CMM (150-450); RED BLOOD CELL COUNT(AUTO) 4.59 MIL/uL (4.0-5.2); WHITE BLOOD COUNT (AUTO) 8.1 K/uL (4.3-11.0)
[2017-03-28] MEDS ORDERED: IPRATROPIUM NEB FS 0.5 MG/2.5 ML AMPUL.NEB NEB ONE (21:00)
[2017-03-28] MEDS ORDERED: ALBUTEROL FS 2.5 MG/3 ML VIAL.NEB NEB ONE (21:00)
[2017-03-28] MEDS ORDERED: methylPREDNISolone SOD SUCC 125 MG/2ML VIAL IV ONE (21:00)
[2017-03-28 21:05] LABS: CALCIUM, SERUM 8.6 mg/dL (8.5-10.1); CREATININE 0.9 mg/dL (0.6-1.3); POTASSIUM 3.8 mmol/L (3.5-5.1)
[2017-03-28 22:24] VITALS: BP 161/92
--- NOTE | 2017-03-28 22:25 | NUR ---
Patient discharged to home in stable condition. Written and verbal after care instructions given. Patient verbalizes understanding of instruction.IV removed. Catheter intact and site benign. Pressure and 4x4 applied to site. No bleeding noted. PT ambulatory with a steady gait VITAL SIGNS WITHIN NORMAL LIMITS.
[2017-03-28] MEDS ORDERED: AZITHROMYCIN 250 MG TABLET ONE (22:29)
[2017-03-28] MEDS ORDERED: AZITHROMYCIN 250 MG TABLET PO ONE (22:30)
--- NOTE | 2017-03-28 22:32 | NUR ---
MEDICATED PT ORDERED
[2017-03-29] MEDS ORDERED: PRED50TA PO (12:52)
[2017-03-29] MEDS ORDERED: FLUT1BLS IH (12:52)
[2017-03-29] MEDS ORDERED: OLAN5TAB3 PO (12:52)
[2017-03-29] MEDS ORDERED: BUSP10TA35 PO (12:52)
[2017-03-29] MEDS ORDERED: BENZ0.5T3 PO (12:52)
[2017-03-29] MEDS ORDERED: AZIT250T6 PO (12:55)
== END 2017-03-28 22:26 | disposition home or self-care (01) ==
LOC: ER 19:33
DX: J45.909 Unspecified asthma, uncomplicated (principal); F41.9 Anxiety disorder, unspecified; Z88.8 Allergy status to other drugs, medicaments and biological substances
CPT/HCPCS: 36415; 71010; 80048; 83605; 85025; 87040 ×2; 94640; 96374; 99285; A4606; Z7610

== ENCOUNTER 2017-03-29 11:44 | Inpatient (IN) | payer OTHER ==
[~2017-03-29] VITALS: Ht 165.1 cm; Wt 131.5 kg
--- NOTE | 2017-03-29 11:44 | NUR ---
BIBRA 3.9 FROM HOME FOR SOB, BREATHING TREATMENT X 1 IN THE FIELD. 91% ON ROOM AIR. PT AAO X4, AMB WITH STEADY GAIT. RR EVEN AND UNLABORED. MD AT BEDSIDE FOR EVAL.
[2017-03-29] MEDS ORDERED: ALBUTEROL FS 2.5 MG/3 ML VIAL.NEB ONE ×2 (11:51→13:25)
[2017-03-29] MEDS ORDERED: IPRATROPIUM NEB FS 0.5 MG/2.5 ML AMPUL.NEB ONE ×2 (11:51→13:25)
[2017-03-29] MEDS ORDERED: methylPREDNISolone SOD SUCC 125 MG/2ML VIAL ONE (11:53)
[2017-03-29] MEDS ORDERED: IPRATROPIUM NEB FS 0.5 MG/2.5 ML AMPUL.NEB NEB ONE ×2 (12:00→13:00)
[2017-03-29] MEDS ORDERED: ALBUTEROL FS 2.5 MG/3 ML VIAL.NEB NEB ONE ×2 (12:00→13:00)
[2017-03-29] MEDS ORDERED: methylPREDNISolone SOD SUCC 125 MG/2ML VIAL IV ONE (12:00)
[2017-03-29 12:19] LABS: BASOPHILS % (AUTO) 0.2 % (0.0-2.0); EOSINOPHILS % (AUTO) 0.1 % (0.0-6.0); HEMATOCRIT 40 % (33-45); HEMOGLOBIN 13.2 g/dL (11.5-14.8); LYMPHOCYTES # (AUTO) 1.8 /CMM (0.8-4.8); LYMPHOCYTES % (AUTO) 14.9 % (20.0-44.0); MEAN CORPUSCULAR HEMOGLOBIN 27 PG (26.0-33.0); MEAN CORPUSCULAR HGB CONC 33 g/dl (31.0-36.0); MEAN CORPUSCULAR VOLUME 82 fL (82-100); MONOCYTES # (AUTO) 0.4 /CMM (0.1-1.30); MONOCYTES % (AUTO) 3.1 % (2.0-12.0); NEUTROPHILS # (AUTO) 10.2 /CMM (1.8-8.9); NEUTROPHILS % (AUTO) 81.7 % (43.0-81.0); PLATELET COUNT (AUTO) 371 /CMM (150-450); RDW COEFFICIENT OF VARIATION 13.3 (11.5-15.0); RED BLOOD CELL COUNT(AUTO) 4.92 MIL/uL (4.0-5.2); WHITE BLOOD COUNT (AUTO) 12.4 K/uL (4.3-11.0)
[2017-03-29] MEDS ORDERED: IV NS 0.9% 1,000 ML BAG IV ONE ×3 (12:30→13:30)
[2017-03-29] MEDS ORDERED: ACETAMINOPHEN ES 500 MG TABLET ONE (12:31)
[2017-03-29 12:33] LABS: INR 0.98 (0.87-1.13); PROTHROMBIN TIME 10.2 SECS (9.5-12.7)
[2017-03-29 12:50] LABS: CALCIUM, SERUM 8.7 mg/dL (8.5-10.1); CARBON DIOXIDE 22 mmol/L (21-32); CHLORIDE 105 mmol/L (98-107); CREATININE 0.9 mg/dL (0.6-1.3); GLUCOSE 154 mg/dL (74-106); POTASSIUM 3.5 mmol/L (3.5-5.1); SODIUM SERUM 141 mmol/L (136-145); UREA NITROGEN, BLOOD 15 mg/dL (7-18)
[2017-03-29] MEDS ORDERED: BENZ0.5T3 PO (12:52)
[2017-03-29] MEDS ORDERED: OLAN5TAB3 PO (12:52)
[2017-03-29] MEDS ORDERED: BUSP10TA35 PO (12:52)
[2017-03-29] MEDS ORDERED: PRED50TA PO (12:52)
[2017-03-29] MEDS ORDERED: FLUT1BLS IH (12:52)
[2017-03-29] MEDS ORDERED: AZIT250T6 PO (12:55)
[2017-03-29] MEDS ORDERED: CEFTRIAXONE 1GM BAG (ER ONLY) 50 ML IV ONE ×2 (13:00→13:17)
[2017-03-29] MEDS ORDERED: AZITHROMYCIN 500 MG in IV D5W 250 ML IV ONE (13:00)
[2017-03-29] MEDS ORDERED: ACETAMINOPHEN ES 500 MG TABLET PO ONE (13:00)
[2017-03-29 13:04] LABS: ALANINE AMINOTRANSFERASE 22 U/L (12-78); ALBUMIN 3.5 g/dL (3.4-5.0); ALKALINE PHOSPHATASE 77 U/L (46-116); ASPARTATE AMINOTRANSFERASE 11 U/L (15-37); BILIRUBIN,DIRECT 0.1 mg/dL (0.0-0.2); BILIRUBIN,TOTAL 0.2 mg/dL (0.2-1.0); TOTAL PROTEIN, SERUM 7.9 g/dL (6.4-8.2)
[2017-03-29 13:07] LABS: TROPONIN I < 0.017 ng/mL (0.00-0.056)
--- NOTE | 2017-03-29 13:15 | NUR ---
REPORT GIVEN TO MERLIN BERMAN FOR W[facility]
[2017-03-29] MEDS ORDERED: VANCOMYCIN 1 GM in IV D5W 250 ML IV ONE (13:30)
[2017-03-29] MEDS ORDERED: ONDANSETRON HCL/PF 4 MG/2 ML VIAL IVP PRN (13:30)
[2017-03-29] MEDS ORDERED: LORAZEPAM INJ 2 MG/ML VIAL IVP PRN (13:30)
[2017-03-29] MEDS ORDERED: ACETAMINOPHEN 325 MG TABLET PO PRN (13:30)
[2017-03-29] MEDS: IV NS 0.9% 1,000 ML IV ONE ×2 (13:30→14:15)
[2017-03-29] MEDS ORDERED: FEE PK DOSING 1 MIN EA MC ONE (13:41)
[2017-03-29 14:00] VITALS: BP 108/57
[2017-03-29] MEDS: VANCOMYCIN 1 GM in IV D5W 250 ML IV SCH ×2 (14:00→21:34)
--- NOTE | 2017-03-29 14:00 | NUR ---
DRY HOUSE TENDER OPENING RECEIVED PATIENT A/OX4 STATES STILL SOB. TOLERATING 2LPM NC SATTING 94%. RESPIRATIONS EQUAL AND UNLABORED. PATIENT STATES LEFT FLANK PAIN WHICH MOTRIN HELPS AT HOME. PATIENT IV INTACT RUNNING ORDERED NS AND VANCO WHICH WAS STARTED IN ER. (VANCO NON ADMINED STARTED IN ER). MD SMITH AWARE OF ADMISSION. PATIENT TELE NSR-TACHY (UP TO 108). PATIENT UPDATED ON CARE PLAN AND FAMILY AT BEDSIDE AND STATE UNDERSTANDING. PATIENT APPEARS STABLE AT THIS TIME AND WILL ROUND Q2H OR LESS PER NEEDS. NEEDS IN REACH, CALL LIGHT IN REACH. BED LOWERED AND LOCKED, RAILS UPX3 FOR SAFETY WITH BED ALARM ON.
[2017-03-29 14:21] VITALS: BP 108/57
[2017-03-29] MEDS ORDERED: IPRATROPIUM NEB FS 0.5 MG/2.5 ML AMPUL.NEB NEB PRN (14:30)
[2017-03-29] MEDS ORDERED: ALBUTEROL FS 2.5 MG/0.5 ML VIAL.NEB NEB PRN (14:30)
[2017-03-29] MEDS: IPRATROPIUM NEB FS 0.5 MG/2.5 ML AMPUL.NEB NEB SCH ×3 (14:32→23:11)
[2017-03-29] MEDS: ALBUTEROL FS 2.5 MG/0.5 ML VIAL.NEB NEB SCH ×3 (14:32→23:11)
--- NOTE | 2017-03-29 14:37 | NUR ---
RATE QUOTING OPERATOR NOTES IVF 2ND BOLUS BEING COMPLETED WILL COMPLETE REASSESSMENT ONCE COMPLETED
--- NOTE | 2017-03-29 14:46 | NUR ---
ORDER PLANNER NOTES PATIENT HR 120'S. DR SMITH AWARE. PER MD ONCE 2ND BOLUS IS COMPLETED CONTINUE IVF NS 100ML/HOUR CONTINUOUS. AND FOR FLANK PAIN ORDER IBUPROFEN PRN PO 400MG PO Q6H FOR PAIN MILD
[2017-03-29] MEDS: IBUPROFEN 400 MG TABLET PO PRN (14:57)
--- NOTE | 2017-03-29 15:37 | NUR ---
CONTOUR BAND SAW OPERATOR VERTICAL NOTES MESSAGE FOR DR SMITH IN RE TO REPEAT LACTIC ACID 5.2.
[2017-03-29] MEDS: IV NS 0.9% 1,000 ML IV PRN (15:53)
--- NOTE | 2017-03-29 15:58 | NUR ---
MANUFACTURING PROJECT MANAGER NOTES MD SMITH AWARE OF FLUID RESUSCITATION AND LACTIC ACID RESULTS. PER MD REPEAT LACTIC ACID AT 2100 HOURS
[2017-03-29 16:00] VITALS: BP 105/49
--- NOTE | 2017-03-29 16:00 | NUR ---
AIR TRAFFIC CONTROL MANAGER NOTES PATIENT RESTING COMFORTABLY AT THIS TIME.. APPEARS STABLE. NO SOB, DIFFICULTY BREATHING
--- NOTE | 2017-03-29 16:03 | NUR ---
COSMETOLOGY PROFESSOR NOTES AWAITING PHARMACY TO BRING 1500 AX
--- NOTE | 2017-03-29 17:08 | NUR ---
COPPER ETCHER NOTES CALLED PHARMACY. WE HAVE YET TO RECEIVE PATIENT AX FOR 1500. PER PHARM THEY WILL NOT CHANGE TIME TO UPDATE NEXT SCHEDULED. WILL ENDORSE TO NIGHT RN TO MONITOR TIME FRAMES FOR NEXT ADMIN
[2017-03-29] MEDS: PIPERACILLIN /TAZOBACTAM 3.375 G in IV D5W 50 ML IV SCH ×2 (17:14→20:17)
[2017-03-29] MEDS: methylPREDNISolone SOD SUCC 125 MG/2ML VIAL IV SCH ×2 (17:33→23:05)
--- NOTE | 2017-03-29 17:46 | NUR ---
PLASTIC ROLLER NOTES PATIENT STATES FLANK PAIN IS GONE AT THIS TIME
--- NOTE | 2017-03-29 19:13 | NUR ---
VENDING ATTENDANT CLOSING PATIENT STABLE. PRN BREATHING TREATMENTS ORDERED. PATIENT STATES PAIN IS CONTROLLED AT THIS TIME. PATIENT SITTING UP IN CHAIR FOR INCREASED COMFORT IN BREATHING. ALL DUE MEDS GIVEN AND ALL NEEDS MET. PATIENT CARE WILL BE ENDORSED TO ANTONELLA SEXTON FOR [facility].
--- NOTE | 2017-03-29 19:30 | NUR ---
RECEIVED PATIENT SITTING IN BED, A&O X4, MILD SOB NOTED HR 120'S BP 108/54, AFEBRILE. PATIENT ADMITTED FOR SEPSIS - WBC 12.4, LACTIC ACID 5.2- REPEAT AT 21:00. SAFETY MEASURES IMPLEMENTED CONTINUE TO MONITOR
[2017-03-29 20:00] VITALS: BP 108/53
[2017-03-29] MEDS: OLANZAPINE 10 MG TABLET PO SCH (22:00)
[2017-03-29] MEDS ORDERED: OLANZAPINE 5 MG TABLET ONE (22:07)
--- NOTE | 2017-03-29 22:10 | NUR ---
DR. MA NOTIFIED OF LACTIC ACID RESULTS - 4.0, PATIENT ON CONTINUE IVF, ABX. ZYPREXA ORDERED PER PATIENT'S REQUEST. EDUCATION/ INSTRUCTIONS GIVEN TO THE PATIENT, QUESTIONS ANSWERED. CALL LIGHT WITHIN REACH CONTINUE TO MONITOR
[2017-03-30] VITALS: BP 104/57
[2017-03-30] MEDS: PIPERACILLIN /TAZOBACTAM 3.375 G in IV D5W 50 ML IV SCH ×4 (02:16→21:12)
[2017-03-30] MEDS: ALBUTEROL FS 2.5 MG/0.5 ML VIAL.NEB NEB SCH ×6 (03:02→23:10)
[2017-03-30] MEDS: IPRATROPIUM NEB FS 0.5 MG/2.5 ML AMPUL.NEB NEB SCH ×6 (03:02→23:10)
[2017-03-30 04:00] VITALS: BP 108/67
[2017-03-30] MEDS: VANCOMYCIN 1 GM in IV D5W 250 ML IV SCH (05:02)
[2017-03-30] MEDS: methylPREDNISolone SOD SUCC 125 MG/2ML VIAL IV SCH ×3 (05:03→17:23)
--- NOTE | 2017-03-30 05:30 | NUR ---
PATIENT ACCIDENTLY PULLED OUT HER MID LINE- MULTIPLE ATTEMPTS WERE DONE TO JEAN-CLAUDE SALINE LOCK - UNABLE . CHARGE NURSE LEORA, NURSING ELECTRON GUN ASSEMBLER EMELY NOTIFIED. WILL REINFORCE TO THE DAY SHIFT THAT PATIENT NEEDS A CENTRAL LINE AND TO COMPLETE HER VANCOMYCIN IVPB
[2017-03-30 06:47] LABS: HEMATOCRIT 37 % (33-45); HEMOGLOBIN 12.3 g/dL (11.5-14.8); LYMPHOCYTES # (AUTO) 1.1 /CMM (0.8-4.8); LYMPHOCYTES % (AUTO) 7.3 % (20.0-44.0); MEAN CORPUSCULAR HEMOGLOBIN 27 PG (26.0-33.0); MEAN CORPUSCULAR HGB CONC 33 g/dl (31.0-36.0); MEAN CORPUSCULAR VOLUME 83 fL (82-100); MONOCYTES # (AUTO) 0.2 /CMM (0.1-1.30); MONOCYTES % (AUTO) 1.3 % (2.0-12.0); NEUTROPHILS # (AUTO) 13.9 /CMM (1.8-8.9); NEUTROPHILS % (AUTO) 91.4 % (43.0-81.0); PLATELET COUNT (AUTO) 345 /CMM (150-450); RED BLOOD CELL COUNT(AUTO) 4.51 MIL/uL (4.0-5.2); WHITE BLOOD COUNT (AUTO) 15.2 K/uL (4.3-11.0)
[2017-03-30 06:58] LABS: INR 0.93 (0.87-1.13); PROTHROMBIN TIME 9.7 SECS (9.5-12.7)
[2017-03-30 07:02] LABS: ALBUMIN 3.1 g/dL (3.4-5.0); BILIRUBIN,TOTAL 0.1 mg/dL (0.2-1.0); CALCIUM, SERUM 8.8 mg/dL (8.5-10.1); CREATININE 0.7 mg/dL (0.6-1.3); POTASSIUM 4.1 mmol/L (3.5-5.1); TOTAL PROTEIN, SERUM 7.3 g/dL (6.4-8.2)
[2017-03-30 08:00] VITALS: BP_SYST 133; BP_SYST 138; BP_DIAS 75; BP_DIAS 85
[2017-03-30] MEDS: PANTOPRAZOLE 40 MG VIAL IV SCH (08:44)
[2017-03-30] MEDS: IBUPROFEN 400 MG TABLET PO PRN (10:50)
[2017-03-30 12:00] VITALS: BP 124/73
[2017-03-30 16:00] VITALS: BP 119/57
[2017-03-30] MEDS: VANCOMYCIN 1 GM in IV D5W 250ml IV SCH (17:23)
[2017-03-30 20:00] VITALS: BP 115/80
[2017-03-30] MEDS: MORPHINE SULFATE INJ 2 MG/ML DISP.SYRIN IV PRN (21:13)
[2017-03-30] MEDS: IV NS 0.9% 1,000 ML IV PRN (21:13)
[2017-03-30] MEDS: OLANZAPINE 10 MG TABLET PO SCH (21:14)
[2017-03-31] VITALS: BP 121/67
[2017-03-31] MEDS: methylPREDNISolone SOD SUCC 125 MG/2ML VIAL IV SCH ×3 (00:01→16:26)
[2017-03-31] MEDS: VANCOMYCIN 1 GM in IV D5W 250ml IV SCH ×2 (00:02→09:38)
[2017-03-31] MEDS: IPRATROPIUM NEB FS 0.5 MG/2.5 ML AMPUL.NEB NEB SCH ×6 (02:18→23:40)
[2017-03-31] MEDS: ALBUTEROL FS 2.5 MG/0.5 ML VIAL.NEB NEB SCH ×6 (02:18→23:40)
[2017-03-31] MEDS: MORPHINE SULFATE INJ 2 MG/ML DISP.SYRIN IV PRN (02:20)
[2017-03-31] MEDS: PIPERACILLIN /TAZOBACTAM 3.375 G in IV D5W 50 ML IV SCH ×4 (02:53→21:03)
[2017-03-31 04:00] VITALS: BP_SYST 106; BP_SYST 115; BP_DIAS 70; BP_DIAS 80
--- NOTE | 2017-03-31 06:23 | NUR ---
END OF SHIFT SUMMERY: pt is A&O X 4. in a stable condition, still on 2 L NC, saturating well. connected to the cardiac monitor technician, NSR-ST. no acute respiratory/cardiac distress noted. will endorse pt to AM shift nurse to continue the care.
--- NOTE | 2017-03-31 07:30 | NUR ---
RN EVELYN RECEIVED PATIENT AWAKE ON BED WITH ONGOING 02 VIA NASAL CANNULA AT 2 L NO RESPIRATORY DISTRESS AT THE MOMENT SHE SAID SHE REMAINS WEAK AND ENCOURAGED TO REST SINCE BODY IS WITH DISEASE MONITORED CLOSELY
[2017-03-31 08:00] VITALS: BP 128/87
[2017-03-31 08:03] LABS: BASOPHILS % (AUTO) 0.1 % (0.0-2.0); EOSINOPHILS % (AUTO) 0.1 % (0.0-6.0); HEMATOCRIT 37 % (33-45); HEMOGLOBIN 12.1 g/dL (11.5-14.8); LYMPHOCYTES # (AUTO) 1.4 /CMM (0.8-4.8); LYMPHOCYTES % (AUTO) 8.9 % (20.0-44.0); MEAN CORPUSCULAR HEMOGLOBIN 27 PG (26.0-33.0); MEAN CORPUSCULAR HGB CONC 32 g/dl (31.0-36.0); MEAN CORPUSCULAR VOLUME 82 fL (82-100); MONOCYTES # (AUTO) 0.3 /CMM (0.1-1.30); MONOCYTES % (AUTO) 1.9 % (2.0-12.0); PLATELET COUNT (AUTO) 347 /CMM (150-450); RDW COEFFICIENT OF VARIATION 14.3 (11.5-15.0); RED BLOOD CELL COUNT(AUTO) 4.57 MIL/uL (4.0-5.2); WHITE BLOOD COUNT (AUTO) 15.8 K/uL (4.3-11.0)
[2017-03-31 08:20] LABS: CALCIUM, SERUM 8.7 mg/dL (8.5-10.1); CREATININE 0.7 mg/dL (0.6-1.3); PHOSPHORUS 3.5 mg/dL (2.5-4.9); POTASSIUM 3.9 mmol/L (3.5-5.1)
[2017-03-31] MEDS: PANTOPRAZOLE 40 MG VIAL IV SCH (09:02)
[2017-03-31 10:14] LABS: LYMPHOCYTES % (MANUAL) 15 % (16-48); MONOCYTES % (MANUAL) 2 % (0-11.0); NEUTROPHILS % (MANUAL) 83 (42-76)
[2017-03-31 12:00] VITALS: BP 100/60
[2017-03-31] MEDS: IV NS 0.9% 1,000 ML IV PRN (14:08)
[2017-03-31 16:00] VITALS: BP 95/54
[2017-03-31] MEDS: VANCOMYCIN 1.25 GM in IV D5W 500 ML IV SCH (16:26)
--- NOTE | 2017-03-31 19:41 | NUR ---
RN INITIAL NOTES RECEIVED PATIENT SITTING UP IN BED, AWAKE AND ALERT AND ORIENTED. PATIENT WITH COMPLAINT OF DIFFICULTY BREATHING AT BEGINNING OF SHIFT, NO OTHER DISTRESS AND DISCOMFORT, CURRENTLY ON 2LPM OF O2 VIA NC. COORDINATED WITH RT FOR THE SCHEDULED BREATHING TREATMENT, ADMINISTERED AND PATIENT NOW VERBALIZES RELIEF FROM DISCOMFORT, NO SOB AND NO DISTRESS. PATIENT WITH IVF ORDERED, INFUSING ON THE PATIENT'S L HAND G20, NO SIGNS OF INFILTRATION AND PHLEBITIS, FLUSHING WELL. PATIENT IS SR ON TELE WITH HR OF 90s. ABLE TO AMBULATE WITH STEADY GAIT, NO SOB UPON EXERTION. PATIENT'S NEEDS ANTICIPATED AND MET. SAFETY AND COMFORT ENSURED. BED IN LOW AND LOCKED POSITION. FAMILY AT BEDSIDE, UPDATED WITH PLAN OF CARE NEEDED.
[2017-03-31 20:00] VITALS: BP 128/64
[2017-03-31] MEDS: OLANZAPINE 10 MG TABLET PO SCH (21:03)
[2017-04-01] VITALS: BP 98/65
[2017-04-01] MEDS: VANCOMYCIN 1.25 GM in IV D5W 500 ML IV SCH ×3 (01:20→18:58)
[2017-04-01] MEDS: IPRATROPIUM NEB FS 0.5 MG/2.5 ML AMPUL.NEB NEB SCH ×5 (02:56→19:20)
[2017-04-01] MEDS: ALBUTEROL FS 2.5 MG/0.5 ML VIAL.NEB NEB SCH ×5 (02:56→19:20)
[2017-04-01 04:00] VITALS: BP 119/47
[2017-04-01] MEDS: IV NS 0.9% 1,000 ML IV PRN ×2 (04:12→16:36)
[2017-04-01] MEDS: PIPERACILLIN /TAZOBACTAM 3.375 G in IV D5W 50 ML IV SCH ×4 (04:12→21:00)
--- NOTE | 2017-04-01 06:32 | NUR ---
RN CLOSING NOTES PATIENT WITH NO ACUTE DISTRESS OBSERVED OVERNIGHT. PATIENT SLEPT COMFORTABLY. SATURATING WELL AT 2LPM OF O2 VIA NC, BREATHING TREATMENT ADMINISTERED SCHEDULED, PATIENT WITH NO C/O SOB THROUGH THE SHIFT. IVF ORDERED. ALL DUE MEDS GIVEN ORDERED. AM LABS DRAWN. PATIENT'S NEEDS ANTICIPATED AND MET. SAFETY AND COMFORT ENSURED. BED IN LOW AND LOCKED POSITION. CALL LIGHT IN REACH. WILL ENDORSE ACCORDINGLY FOR CONTINUITY OF CARE.
--- NOTE | 2017-04-01 07:18 | NUR ---
RN NOTES RECEIVED PATIENT AOX4 , NOT IN ACUTE DISTRESS , DENIES SOB AND DISCOMFORT AT THIS TIME , ON 2LPM NC SPO2 OF 98% , SR 85 ON FORENSIC ANALYST , IV OF L HAND # 20 PATENT AND INTACT WITH NS @ 100ML/HR INFUSING WELL , ALL NEEDS ATTENDED , BED ON LOW AND LOCKED POSITION , SIDE RAILS X2 ,CALL LIGHT WITHIN REACH , WILL CONTINUE TO MONITOR .
[2017-04-01 07:22] LABS: BASOPHILS % (AUTO) 0.1 % (0.0-2.0); HEMATOCRIT 37 % (33-45); HEMOGLOBIN 12.2 g/dL (11.5-14.8); LYMPHOCYTES % (AUTO) 13.8 % (20.0-44.0); MEAN CORPUSCULAR HEMOGLOBIN 27 PG (26.0-33.0); MEAN CORPUSCULAR HGB CONC 33 g/dl (31.0-36.0); MEAN CORPUSCULAR VOLUME 82 fL (82-100); MONOCYTES # (AUTO) 0.8 /CMM (0.1-1.30); MONOCYTES % (AUTO) 5.3 % (2.0-12.0); NEUTROPHILS # (AUTO) 11.7 /CMM (1.8-8.9); NEUTROPHILS % (AUTO) 80.8 % (43.0-81.0); PLATELET COUNT (AUTO) 340 /CMM (150-450); RDW COEFFICIENT OF VARIATION 14.1 (11.5-15.0); RED BLOOD CELL COUNT(AUTO) 4.53 MIL/uL (4.0-5.2); WHITE BLOOD COUNT (AUTO) 14.5 K/uL (4.3-11.0)
[2017-04-01 07:58] LABS: CALCIUM, SERUM 8.3 mg/dL (8.5-10.1); CREATININE 0.8 mg/dL (0.6-1.3); PHOSPHORUS 3.6 mg/dL (2.5-4.9); POTASSIUM 3.3 mmol/L (3.5-5.1)
[2017-04-01 08:00] VITALS: BP 120/76
[2017-04-01] MEDS: methylPREDNISolone SOD SUCC 125 MG/2ML VIAL IV SCH ×2 (08:24→16:36)
[2017-04-01] MEDS: PANTOPRAZOLE 40 MG VIAL IV SCH (08:24)
[2017-04-01] MEDS ORDERED: POTASSIUM CHLORIDE 20 MEQ TAB.PRT.SR PO SCH (10:00)
--- NOTE | 2017-04-01 10:30 | NUR ---
RN NOTES SPOKE WITH DR SMITH , DISCUSSED LABS , NOTED WITH WHEEZING THROUGH PRN BREATHING TREATMENT GIVEN BY RT , , FOLLOWED UP HOME PSYCH MEDICATION TO REVIEW , PER MD ORDER PSYCH CONSULT , FAXED FACE SHEET TO DAVID DUARTE ,
[2017-04-01 12:00] VITALS: BP 131/73
[2017-04-01 16:00] VITALS: BP 113/82
[2017-04-01] MEDS: busPIRone 5 MG TABLET PO SCH (16:36)
--- NOTE | 2017-04-01 19:09 | NUR ---
RN NOTES PT COMPLAINS OF MILD SOB , SPO2 OF 97% VIA 2LPM NC , NOTED WITH WHEEZING UPON AUSCULTATION, CALLED RT FOR PRN BREATHING TREATMENT
--- NOTE | 2017-04-01 19:30 | NUR ---
ALARM MECHANIC INITIAL NOTES RECEIVED PATIENT AWAKE, A/OX4, SITTING IN CHAIR. ABLE TO MAKE NEEDS KNOWN. DENIES SOB AT THIS TIME. ON 2LPMO2 VIA NC. STATES SHE'S FEELING MUCH BETTER. DENIES PAIN OR DISCOMFORT. ON TELE MONITOR SR 96. SKIN WARM AND DRY TO TOUCH. WITH RH 22G PATENT AND INTACT. VANCOMYCIN RUNNING. CALL LIGHT KEPT WITHIN EASY REACH. WILL CONTINUE TO MONITOR.
[2017-04-01 20:00] VITALS: BP 104/68
[2017-04-01] MEDS: OLANZAPINE 10 MG TABLET PO SCH (21:05)
[2017-04-02] VITALS: BP_SYST 104; BP_SYST 95; BP_DIAS 51; BP_DIAS 68
[2017-04-02] MEDS: IPRATROPIUM NEB FS 0.5 MG/2.5 ML AMPUL.NEB NEB SCH ×4 (00:06→11:16)
[2017-04-02] MEDS: ALBUTEROL FS 2.5 MG/0.5 ML VIAL.NEB NEB SCH ×4 (00:06→11:16)
[2017-04-02] MEDS: VANCOMYCIN 1.25 GM in IV D5W 500 ML IV SCH ×2 (00:59→09:37)
[2017-04-02] MEDS: PIPERACILLIN /TAZOBACTAM 3.375 G in IV D5W 50 ML IV SCH ×2 (03:36→08:57)
[2017-04-02 04:00] VITALS: BP 102/60
[2017-04-02 05:22] LABS: BASOPHILS % (AUTO) 0.3 % (0.0-2.0); EOSINOPHILS % (AUTO) 0.1 % (0.0-6.0); HEMATOCRIT 37 % (33-45); HEMOGLOBIN 12.1 g/dL (11.5-14.8); LYMPHOCYTES # (AUTO) 2.2 /CMM (0.8-4.8); LYMPHOCYTES % (AUTO) 13.3 % (20.0-44.0); MEAN CORPUSCULAR HEMOGLOBIN 27 PG (26.0-33.0); MEAN CORPUSCULAR HGB CONC 33 g/dl (31.0-36.0); MEAN CORPUSCULAR VOLUME 82 fL (82-100); MONOCYTES # (AUTO) 0.3 /CMM (0.1-1.30); MONOCYTES % (AUTO) 1.9 % (2.0-12.0); NEUTROPHILS # (AUTO) 14.2 /CMM (1.8-8.9); NEUTROPHILS % (AUTO) 84.4 % (43.0-81.0); PLATELET COUNT (AUTO) 348 /CMM (150-450); RDW COEFFICIENT OF VARIATION 13.9 (11.5-15.0); RED BLOOD CELL COUNT(AUTO) 4.53 MIL/uL (4.0-5.2); WHITE BLOOD COUNT (AUTO) 16.9 K/uL (4.3-11.0)
[2017-04-02 05:37] LABS: CALCIUM, SERUM 8.5 mg/dL (8.5-10.1); CREATININE 0.7 mg/dL (0.6-1.3); MAGNESIUM 2.1 mg/dL (1.8-2.4); PHOSPHORUS 3.8 mg/dL (2.5-4.9); POTASSIUM 3.9 mmol/L (3.5-5.1)
--- NOTE | 2017-04-02 07:28 | NUR ---
GRADUATE RN CLOSING NOTES NO SIGNIFICANT CHANGES OVERNIGHT. NO RESPIRATORY DISTRESS NOTED. ALL DUE MEDS GIVEN. NO C/O SOB, NO C/O PAIN OR DISCOMFORT. SLEPT WELL THROUGH THE NIGHT. ALL NEEDS ANTICIPATED AND MET. IVF RUNNING. SIDE RAILS UP AND LOCKED. BED KEPT AT LOWEST POSITION. CALL LIGHT KEPT WITHIN EASY REACH. CONTINUITY OF CARE ENDORSED TO AM NURSE.
--- NOTE | 2017-04-02 07:52 | NUR ---
GRINDER GEAR NOTE RESTING COMFORTABLY IN BED , ALL NEEDS ATTENDED , CALL LIGHT WITHIN REACH , ELFEGO MID LINE IN PLACE ,ON 50 ML PER HOUR NS , ON TELE MONITOR SR 79, ON 2 L NC NO SOB NOTED AT THIS TIME , BED IN LOWEST AND LOCKED POSITION , WILL CONT TO MONITOR CLOSELY
[2017-04-02 08:00] VITALS: BP 99/75
[2017-04-02] MEDS: methylPREDNISolone SOD SUCC 125 MG/2ML VIAL IV SCH (08:56)
[2017-04-02] MEDS: PANTOPRAZOLE 40 MG VIAL IV SCH (08:56)
[2017-04-02] MEDS: busPIRone 5 MG TABLET PO SCH (08:57)
[2017-04-02] MEDS ORDERED: SERTRALINE HCL 50 MG TABLET PO SCH (09:00)
--- NOTE | 2017-04-02 11:00 | NUR ---
TECHNOLOGY TRAINER NOTE ON BREATHING TX ORDERED, NOT IN ACUTE DISTRESS
[2017-04-02] MEDS ORDERED: BUSP5TAB3 PO (11:12)
[2017-04-02] MEDS ORDERED: LEVO750T21 PO (11:12)
--- NOTE | 2017-04-02 11:44 | NUR ---
BANKING OFFICER NOTE SEEN BY NICK SIMMONS RN SUPERVISOR FILTRATION, WITH ORDER TO DISCHARGE HOME , ORDER CARRIED OUT
[2017-04-02 12:00] VITALS: BP 132/74
--- NOTE | 2017-04-02 13:49 | NUR ---
telephone triage nurse note discharge instruction given to patient and father , understood and return demonstration done ,mid line on lt upper arm removed ,no bleeding noted , px given , explained how to take and possible side effects, instructed to follow up with primary care doctor within 1 week . o2 at home and patient taken to lobby on on w\c with stable condition, father brought portable o2 for patient to transfer from hospital to house
== END 2017-04-02 13:40 | disposition home or self-care (01) | DRG 871 ==
LOC: ER 11:47 → TELE1 12:46
PROVIDERS: ADMIT Internal Medicine; ATTEND Internal Medicine
PROC: B546ZZA Ultrasonography of Right Subclavian Vein, Guidance (ICD-10-PCS; principal; 2017-03-29)
PROC: 05H533Z Insertion of Infusion Device into Right Subclavian Vein, Percutaneous Approach (ICD-10-PCS; principal; 2017-03-29)
PROC: B547ZZA Ultrasonography of Left Subclavian Vein, Guidance (ICD-10-PCS; 2017-04-02)
PROC: 05H633Z Insertion of Infusion Device into Left Subclavian Vein, Percutaneous Approach (ICD-10-PCS; 2017-04-02)
DX: A41.9 Sepsis, unspecified organism (principal); J15.9 Unspecified bacterial pneumonia; D68.59 Other primary thrombophilia; J84.10 Pulmonary fibrosis, unspecified; E46 Unspecified protein-calorie malnutrition; J45.901 Unspecified asthma with (acute) exacerbation; Z99.81 Dependence on supplemental oxygen; Z79.899 Other long term (current) drug therapy; Z79.51 Long term (current) use of inhaled steroids; G47.33 Obstructive sleep apnea (adult) (pediatric); F41.9 Anxiety disorder, unspecified; F32.9 Major depressive disorder, single episode, unspecified; Z88.8 Allergy status to other drugs, medicaments and biological substances; Z91.018 Allergy to other foods; E66.9 Obesity, unspecified
CPT/HCPCS: 36415; 36569; 71010-TC; 71250-TC; 80048-TC; 80053-TC; 80076-TC; 80202-TC; 83605-TC; 83735-TC; 84100-TC; 84484-TC; 85025-TC; 85610-TC; 85730-TC; 87040-TC; 93307-TC; A4606; C9113; J0456; J0696; J2060; J2270; J2543; J2930; J3370; J7030; J7060; J7070; Z7610

== ENCOUNTER 2017-10-27 12:41 | Emergency (ER) | payer OTHER ==
[~2017-10-27] VITALS: Ht 160 cm; Wt 120.2 kg
[2017-10-27 12:41] VITALS: BP 126/73
[~2017-10-27 12:41] MED LIST changes: -ARIP20TA8 PO; +BENZ0.5T43 PO; -BUDE10.2 IH; +BUSP5TAB3 PO; -ESCI10TA PO; -ESCITALOPRAM 10 MG TABLET; +FLUT1BLS IH; -LEVO500T15 PO; +LEVO750T21 PO; +OLAN5TAB3 PO; -PRED20TA PO; +PRED50TA PO
--- NOTE | 2017-10-27 14:10 | NUR ---
CALLED [facility]TR[facility] TO FOLLOW UP
--- NOTE | 2017-10-27 15:15 | NUR ---
Patient discharged to home in stable condition. Written and verbal after care instructions given. Patient verbalizes understanding of instruction. PT AMBULATED OUT WITH A STEADY GAIT. VSS.
== END 2017-10-27 15:27 | disposition home or self-care (01) ==
LOC: ER 12:43
DX: R60.0 Localized edema (principal); F31.9 Bipolar disorder, unspecified; F41.9 Anxiety disorder, unspecified; J45.909 Unspecified asthma, uncomplicated; J84.10 Pulmonary fibrosis, unspecified; F17.200 Nicotine dependence, unspecified, uncomplicated; Z88.8 Allergy status to other drugs, medicaments and biological substances; Z91.018 Allergy to other foods
CPT/HCPCS: 93970-TC; A4606; Z7610

== ENCOUNTER 2018-07-13 18:21 | Emergency (ER) | payer OTHER ==
[~2018-07-13] VITALS: Ht 154.9 cm; Wt 117.0 kg
[2018-07-13] MEDS ORDERED: Magnesium 1GM/D5W 100ML PREMIX 200 ML IV ONE ×2 (18:33→18:43)
[2018-07-13] MEDS ORDERED: TERBUTALINE SULFATE 1 MG/ML VIAL ONE (18:43)
[2018-07-13] MEDS ORDERED: DEXAMETHASONE SOD PHOSPHATE 10 MG/ML VIAL ONE (18:43)
[2018-07-13] MEDS ORDERED: IPRATROPIUM NEB FS 0.5 MG/2.5 ML AMPUL.NEB ONE (18:45)
[2018-07-13] MEDS ORDERED: ALBUTEROL FS 2.5 MG/3 ML VIAL.NEB ONE (18:45)
[2018-07-13] MEDS ORDERED: ALBUTEROL FS 2.5 MG/3 ML VIAL.NEB CONTNEB ONE (19:00)
[2018-07-13] MEDS ORDERED: TERBUTALINE SULFATE 1 MG/ML VIAL SQ ONE (19:00)
[2018-07-13] MEDS ORDERED: DEXAMETHASONE SOD PHOSPHATE 10 MG/ML VIAL IV ONE (19:00)
[2018-07-13] MEDS ORDERED: IPRATROPIUM NEB FS 0.5 MG/2.5 ML AMPUL.NEB NEB ONE (19:00)
[2018-07-13] MEDS ORDERED: IV NS 0.9% 500 ML IV ONE (19:00)
--- NOTE | 2018-07-13 19:05 | NUR ---
presented to the ER c/o asthma X 2 days, wheezing on auscultation. On room air, breathing evenly and unlabored. @ 96%. connected to the monitor, and pulse ox. Denies any pain at this time. Kept comfrotable. will continue to monitor accordingly.
--- NOTE | 2018-07-13 19:23 | NUR ---
endorsed to Ade BERMAN for kirby.
[2018-07-13 19:55] VITALS: BP 132/71
== END 2018-07-13 19:55 | disposition home or self-care (01) ==
LOC: ER 18:29
DX: J45.901 Unspecified asthma with (acute) exacerbation (principal); J84.10 Pulmonary fibrosis, unspecified; E66.01 Morbid (severe) obesity due to excess calories; Z88.8 Allergy status to other drugs, medicaments and biological substances; Z60.2 Problems related to living alone; Z91.018 Allergy to other foods
CPT/HCPCS: 71045; 94644; 96365; 96372; 96375; 99285; A4606; J1100; J3105; J3475; J7040

== ENCOUNTER 2018-09-01 14:15 | Emergency (ER) | payer OTHER ==
[~2018-09-01] VITALS: Ht 154.9 cm; Wt 118.8 kg
[2018-09-01] MEDS ORDERED: IBUPROFEN 400 MG TABLET PO ONE (15:00)
[2018-09-01] MEDS ORDERED: IBUPROFEN 400 MG TABLET ONE (15:17)
[2018-09-01 15:45] VITALS: BP 120/72
== END 2018-09-01 15:58 | disposition home or self-care (01) ==
LOC: ER 14:19
DX: R07.89 Other chest pain (principal); M94.0 Chondrocostal junction syndrome [Tietze]; J84.10 Pulmonary fibrosis, unspecified; J45.909 Unspecified asthma, uncomplicated; F29 Unspecified psychosis not due to a substance or known physiological condition; Z60.2 Problems related to living alone; Z88.8 Allergy status to other drugs, medicaments and biological substances; Z91.018 Allergy to other foods
CPT/HCPCS: 71045-TC

== ENCOUNTER 2019-02-09 23:06 | Emergency (ER) | payer OTHER ==
[~2019-02-09] VITALS: Ht 154.9 cm; Wt 116.1 kg
[2019-02-09 23:20] VITALS: BP 144/67
--- NOTE | 2019-02-09 23:20 | NUR ---
PT BIBFAMILY C/O "HAVING HEADACHE L SIDE. LIGHT SENSITIVITY. TOOK EXCEDRIN, GOES AWAY AND COMES BACK" -SOB AOX4. VSS. AMBULATORY -N/V BLURRY VISION. PT AOX4. NAD NOTED. RESP EVEN AND UNLABORED. PT ON MONITOR IN BED 9 WITH FAMILY AT BEDSIDE. WILL CONTINUE TO MONITOR.
[2019-02-10] MEDS ORDERED: diphenhydrAMINE HCL 50 MG/ML VIAL IV ONE
[2019-02-10] MEDS ORDERED: METOCLOPRAMIDE HCL 10 MG/2 ML VIAL IV ONE
[2019-02-10] MEDS ORDERED: KETOROLAC TROMETHAMINE INJ 30 MG/ML VIAL IV ONE
[2019-02-10] MEDS ORDERED: IV NS 0.9% 1,000 ML BAG IV ONE
--- NOTE | 2019-02-10 00:30 | NUR ---
URINE COLLECTED AND SENT TO LAB
[2019-02-10] MEDS ORDERED: diphenhydrAMINE HCL 50 MG/ML VIAL ONE (00:42)
[2019-02-10] MEDS ORDERED: METOCLOPRAMIDE HCL 10 MG/2 ML VIAL ONE (00:42)
[2019-02-10] MEDS ORDERED: KETOROLAC TROMETHAMINE 15 MG/ML VIAL ONE (00:42)
--- NOTE | 2019-02-10 02:22 | NUR ---
IV removed. Catheter intact and site benign. Pressure and 4x4 applied to site. No bleeding noted.Patient discharged to home in stable condition. Written and verbal after care instructions given. Patient verbalizes understanding of instruction. PT AMBULATORY WITH STEADY GAIT.
== END 2019-02-10 02:23 | disposition home or self-care (01) ==
LOC: ER 23:09
DX: R51 Headache (principal); J45.909 Unspecified asthma, uncomplicated; F32.9 Major depressive disorder, single episode, unspecified; Z60.2 Problems related to living alone; Z88.8 Allergy status to other drugs, medicaments and biological substances; Z91.018 Allergy to other foods
CPT/HCPCS: 84703; 96374; 96375; 99283; J1200; J1885; J2765; J7030

== ENCOUNTER 2019-03-04 17:48 | Emergency (ER) | payer OTHER ==
[~2019-03-04] VITALS: Ht 157.5 cm; Wt 122.5 kg
--- NOTE | 2019-03-04 18:00 | NUR ---
BIBPARENTS, FROM HOME, C/O HEADACHE x 2 WEEKS, TO ER BED 9, HOOKED TO MONITOR, NO DISTRESS NOTED, CHANGED TO HOSPITAL GOWN, PROVIDED W WARM BLANKET, AWAITING MD LORA.
--- NOTE | 2019-03-04 18:18 | NUR ---
PA FOSTER AT BEDSIDE
[2019-03-04] MEDS ORDERED: METOCLOPRAMIDE HCL 10 MG/2 ML VIAL IV ONE (18:30)
[2019-03-04] MEDS ORDERED: diphenhydrAMINE HCL 50 MG/ML VIAL IV ONE (18:30)
[2019-03-04] MEDS ORDERED: KETOROLAC TROMETHAMINE INJ 30 MG/ML VIAL IV ONE ×2 (18:30→19:00)
[2019-03-04] MEDS ORDERED: IV NS 0.9% 1,000 ML BAG IV ONE (18:30)
[2019-03-04] MEDS ORDERED: diphenhydrAMINE HCL 50 MG/ML VIAL ONE (18:36)
[2019-03-04] MEDS ORDERED: KETOROLAC TROMETHAMINE INJ 30 MG/ML VIAL ONE ×2 (18:37→18:59)
[2019-03-04] MEDS ORDERED: METOCLOPRAMIDE HCL 10 MG/2 ML VIAL ONE (18:37)
[2019-03-04] MEDS ORDERED: ONDANSETRON HCL/PF 4 MG/2 ML VIAL ONE (18:37)
[2019-03-04 18:38] LABS: BASOPHILS % (AUTO) 0.4 % (0.0-2.0); EOSINOPHILS % (AUTO) 3.9 % (0.0-6.0); HEMATOCRIT 38 % (33-45); HEMOGLOBIN 12.7 g/dL (11.5-14.8); LYMPHOCYTES # (AUTO) 2.7 /CMM (0.8-4.8); LYMPHOCYTES % (AUTO) 31.1 % (20.0-44.0); MEAN CORPUSCULAR HGB CONC 33 g/dl (31.0-36.0); MEAN CORPUSCULAR VOLUME 82 fL (82-100); MONOCYTES # (AUTO) 0.4 /CMM (0.1-1.30); MONOCYTES % (AUTO) 4.5 % (2.0-12.0); NEUTROPHILS # (AUTO) 5.3 /CMM (1.8-8.9); NEUTROPHILS % (AUTO) 60.1 % (43.0-81.0); PLATELET COUNT (AUTO) 338 /CMM (150-450); RED BLOOD CELL COUNT(AUTO) 4.71 MIL/uL (4.0-5.2); WHITE BLOOD COUNT (AUTO) 8.8 K/uL (4.3-11.0)
[2019-03-04 18:41] LABS: APPEARANCE,URINE Slightly Cloudy (CLEAR); BILIRUBIN,URINE Negative (NEGATIVE); BLOOD, URINE Large Ery/uL (NEGATIVE); COLOR,URINE Pink (YELLOW); KETONES,URINE Negative (NEGATIVE); LEUKOCYTE ESTERASE ,URINE Trace (NEGATIVE); NITRITE, URINE Negative (NEGATIVE); PROTEIN,URINE Trace mg/dl (NEGATIVE); UGLUCOSE Negative (NEGATIVE); UROBILINOGEN,URINE 0.2 EU/dL (0.2)
[2019-03-04 18:45] LABS: CREATININE 0.9 mg/dL (0.6-1.3)
--- NOTE | 2019-03-04 18:50 | NUR ---
RADIOLOGY WHEELED OUT PATIENT TO CT
[2019-03-04 19:00] LABS: BACTERIA,URINE Few /HPF (None Seen); RBC,URINE 51-80 /HPF (0-2); SQUAMOUS EPITHELIAL CELL,UR Few /HPF (None Seen)
--- NOTE | 2019-03-04 19:42 | NUR ---
REPORT GIVEN TO GARRISON BERMAN FOR WESLEY
--- NOTE | 2019-03-04 19:45 | NUR ---
IV removed. Catheter intact and site benign. Pressure and 4x4 applied to site. No bleeding noted. Patient discharged to home with parents in stable condition. Written and verbal after care instructions given. Patient verbalizes understanding of instruction.
[2019-03-04 19:46] VITALS: BP 127/71
== END 2019-03-04 19:46 | disposition home or self-care (01) ==
LOC: ER 17:50
DX: R51 Headache (principal); J45.909 Unspecified asthma, uncomplicated; F32.9 Major depressive disorder, single episode, unspecified; F29 Unspecified psychosis not due to a substance or known physiological condition; Z60.2 Problems related to living alone; Z88.8 Allergy status to other drugs, medicaments and biological substances; Z91.018 Allergy to other foods
CPT/HCPCS: 36415; 70450; 80048; 81001; 84703; 85025; 85730; 96374; 96375; 99284; J1200; J1885 ×2; J2765; J7030 ×2; 81000-TC; J2405

== ENCOUNTER 2019-03-09 20:35 | Emergency (ER) | payer OTHER ==
[~2019-03-09] VITALS: Ht 154.9 cm; Wt 122.5 kg
--- NOTE | 2019-03-09 21:20 | NUR ---
BIB FAMILY DUE TO INTERMITTENT LEFT TEMPORAL HEADACHE ON GOING FOR 2 WEEKS NOW, UNRELIEVED BY THE PRESCRIBED PAIN RELIEVERS. WITH COMPLAINT OF EVERYDAY HEADACHE 10/10, LEFT TEMPORAL AFFECTING TO L JAW.
[2019-03-09 21:23] VITALS: BP 124/75
--- NOTE | 2019-03-09 21:31 | NUR ---
SEEN AND EXAMINED BY RESTAURANT EXPEDITOR AT BEDSIDE.
[2019-03-09] MEDS ORDERED: HYDROCODONE/APAP 5/325MG 1 EACH TABLET ONE (21:38)
[2019-03-09] MEDS ORDERED: HYDROCODONE/APAP 5/325MG 1 EACH TABLET PO ONE (22:00)
== END 2019-03-09 22:13 | disposition home or self-care (01) ==
LOC: ER 20:35
DX: R51 Headache (principal); J45.909 Unspecified asthma, uncomplicated; F32.9 Major depressive disorder, single episode, unspecified; Z91.018 Allergy to other foods; Z91.048 Other nonmedicinal substance allergy status; Z60.2 Problems related to living alone; Z79.899 Other long term (current) drug therapy

== ENCOUNTER 2019-03-22 21:34 | Emergency (ER) | payer OTHER ==
[~2019-03-22] VITALS: Ht 154.9 cm; Wt 122.5 kg
[2019-03-22] MEDS ORDERED: HYDROMORPHONE 1 MG/1 ML DISP.SYRIN ONE (22:50)
[2019-03-22] MEDS ORDERED: ONDANSETRON 4 MG TAB.RAPDIS ONE (22:50)
[2019-03-22] MEDS ORDERED: ONDANSETRON 4 MG TAB.RAPDIS SL ONE (23:00)
[2019-03-22] MEDS ORDERED: HYDROMORPHONE 1 MG/1 ML DISP.SYRIN IM ONE (23:00)
--- NOTE | 2019-03-22 23:06 | NUR ---
KAI FROM [facility] PARENTS. TP ER BED 3. AAOX4. ANXIOUS. NO RESP DISTRESS. C/O SEVER HEADACHE. PT REPORTS THAT HEADACHE AHAS BEEN GOING ON FOR AWHILE. WHILE THIS HEADACHE HAS BEEN GOING ON FOR MORE THAN A WEEK. PT REPORTS THAT THE LIGHT IS AGGREVATING HER HEADACHE. PT HAS BEEN TO A NEUROLOGIST AND DIAGNOSED WITH MIGRAINE. MD AT BEDSIDE FOR EVAL. ORDERS RECEIVED NOTED AND CARRIED OUT. PT MEDICATED ORDER.
--- NOTE | 2019-03-23 00:39 | NUR ---
Patient discharged to home in stable condition. Written and verbal after care instructions given. Patient verbalizes understanding of instruction. Pt ambulatory with a steady gait
[2019-03-23 00:40] VITALS: BP 126/75
== END 2019-03-23 00:42 | disposition home or self-care (01) ==
LOC: ER 21:35
DX: R51 Headache (principal); J45.909 Unspecified asthma, uncomplicated; F41.9 Anxiety disorder, unspecified; F32.9 Major depressive disorder, single episode, unspecified; Z88.8 Allergy status to other drugs, medicaments and biological substances; Z91.018 Allergy to other foods; Z60.2 Problems related to living alone; Z79.899 Other long term (current) drug therapy
CPT/HCPCS: 96372; 99283; J1170; Q0162

== ENCOUNTER 2019-06-01 16:38 | Emergency (ER) | payer OTHER ==
[~2019-06-01] VITALS: Ht 157.5 cm; Wt 114.8 kg
--- NOTE | 2019-06-01 16:40 | NUR ---
BIBRA 860 FROM HOME, SLIPPED AND FELL C/O R KNEE PAIN. TO ER BED 10, HOOKED TO MONITOR, PROVIDED W WARM BLANKET, AWAITING MD LORA. KEPT SAFE AND COMFORTABLE.
--- NOTE | 2019-06-01 17:32 | NUR ---
TORI BEHT AT BEDSIDE
[2019-06-01] MEDS ORDERED: HYDROMORPHONE 1 MG/1 ML DISP.SYRIN ONE (17:38)
[2019-06-01] MEDS ORDERED: KETOROLAC TROMETHAMINE INJ 30 MG/ML VIAL ONE (17:38)
[2019-06-01] MEDS ORDERED: ONDANSETRON 4 MG TAB.RAPDIS ONE (18:00)
[2019-06-01] MEDS ORDERED: KETOROLAC TROMETHAMINE INJ 30 MG/ML VIAL IM ONE (18:00)
[2019-06-01] MEDS ORDERED: LORAZEPAM 0.5 MG TABLET ONE (18:00)
[2019-06-01] MEDS ORDERED: HYDROMORPHONE INJ 0.5 MG/0.5 ML SYRINGE IM ONE (18:00)
--- NOTE | 2019-06-01 18:15 | NUR ---
SUPERVISOR CURED MEATS AT BEDSIDE
[2019-06-01] MEDS ORDERED: LORAZEPAM 0.5 MG TABLET PO ONE (18:30)
[2019-06-01] MEDS ORDERED: ONDANSETRON 4 MG TAB.RAPDIS SL ONE (18:30)
--- NOTE | 2019-06-01 19:34 | NUR ---
REPORT GIVEN TO CARISSA BERMAN FOR WESLEY
--- NOTE | 2019-06-01 20:55 | NUR ---
Patient discharged to home in stable condition. Written and verbal after care instructions given. Patient verbalizes understanding of instruction.Pt ambulatory with a steady gait
[2019-06-01 20:56] VITALS: BP 127/84
== END 2019-06-01 20:56 | disposition home or self-care (01) ==
LOC: ER 18:08
DX: S83.8X1A Sprain of other specified parts of right knee, initial encounter (principal); F41.9 Anxiety disorder, unspecified; E66.01 Morbid (severe) obesity due to excess calories; J45.909 Unspecified asthma, uncomplicated; F32.9 Major depressive disorder, single episode, unspecified; Z68.41 Body mass index [BMI] 40.0-44.9, adult; Z88.8 Allergy status to other drugs, medicaments and biological substances; Z91.018 Allergy to other foods; Z60.2 Problems related to living alone; Z79.899 Other long term (current) drug therapy; W01.0XXA Fall on same level from slipping, tripping and stumbling without subsequent striking against object, initial encounter; Y93.89 Activity, other specified; Y92.89 Other specified places as the place of occurrence of the external cause; Y99.8 Other external cause status
CPT/HCPCS: 29505; 73564; 96372 ×2; 99283; J1170; J1885; Q0162

== ENCOUNTER 2019-06-06 16:02 | Emergency (ER) | payer OTHER ==
[~2019-06-06] VITALS: Ht 157.5 cm; Wt 115.7 kg
[2019-06-06] MEDS ORDERED: ALBUTEROL FS 2.5 MG/3 ML VIAL.NEB NEB ONE (17:00)
[2019-06-06] MEDS ORDERED: IPRATROPIUM NEB FS 0.5 MG/2.5 ML AMPUL.NEB NEB ONE (17:00)
--- NOTE | 2019-06-06 17:06 | NUR ---
FLU SWAB SENT TO LAB
[2019-06-06] MEDS ORDERED: IPRATROPIUM NEB FS 0.5 MG/2.5 ML AMPUL.NEB ONE (17:10)
[2019-06-06] MEDS ORDERED: ALBUTEROL FS 2.5 MG/3 ML VIAL.NEB ONE (17:10)
--- NOTE | 2019-06-06 18:10 | NUR ---
Patient discharged to home in stable condition. Written and verbal after care instructions given. Patient verbalizes understanding of instruction.
[2019-06-06 18:11] VITALS: BP 126/79
== END 2019-06-06 18:12 | disposition home or self-care (01) ==
LOC: ER 16:02
DX: S83.8X1A Sprain of other specified parts of right knee, initial encounter (principal); J06.9 Acute upper respiratory infection, unspecified; J45.901 Unspecified asthma with (acute) exacerbation; E66.01 Morbid (severe) obesity due to excess calories; Z68.42 Body mass index [BMI] 45.0-49.9, adult; Z79.899 Other long term (current) drug therapy; Z88.8 Allergy status to other drugs, medicaments and biological substances; Z91.018 Allergy to other foods; X58.XXXA Exposure to other specified factors, initial encounter; Y93.89 Activity, other specified; Y92.89 Other specified places as the place of occurrence of the external cause; Y99.8 Other external cause status

== ENCOUNTER 2019-06-26 23:03 | Emergency (ER) | payer OTHER ==
[~2019-06-26] VITALS: Ht 162.6 cm; Wt 120.2 kg
--- NOTE | 2019-06-26 23:03 | NUR ---
BIB EMS C/O CP X3 MIN MOGUL OPERATOR., PT TO BED 5, AWAKE, ALERT, -SOB, NAD NOTED, VSS, PENDING MD LORA
[2019-06-26 23:38] LABS: BASOPHILS # (AUTO) 0.1 /CMM (0.0-0.2); BASOPHILS % (AUTO) 1.1 % (0.0-2.0); EOSINOPHILS % (AUTO) 2.9 % (0.0-6.0); HEMATOCRIT 38 % (33-45); HEMOGLOBIN 12.5 g/dL (11.5-14.8); LYMPHOCYTES # (AUTO) 2.6 /CMM (0.8-4.8); LYMPHOCYTES % (AUTO) 33.8 % (20.0-44.0); MEAN CORPUSCULAR HGB CONC 33 g/dl (31.0-36.0); MEAN CORPUSCULAR VOLUME 81 fL (82-100); MONOCYTES # (AUTO) 0.4 /CMM (0.1-1.30); MONOCYTES % (AUTO) 5.4 % (2.0-12.0); NEUTROPHILS # (AUTO) 4.4 /CMM (1.8-8.9); NEUTROPHILS % (AUTO) 56.8 % (43.0-81.0); PLATELET COUNT (AUTO) 318 /CMM (150-450); RED BLOOD CELL COUNT(AUTO) 4.68 MIL/uL (4.0-5.2); WHITE BLOOD COUNT (AUTO) 7.7 K/uL (4.3-11.0)
[2019-06-26 23:45] LABS: CALCIUM, SERUM 9.4 mg/dL (8.5-10.1); CARBON DIOXIDE 30 mmol/L (21-32); CHLORIDE 101 mmol/L (98-107); CREATININE 0.9 mg/dL (0.6-1.3); GLUCOSE 92 mg/dL (74-106); POTASSIUM 3.7 mmol/L (3.5-5.1); SODIUM SERUM 137 mmol/L (136-145); UREA NITROGEN, BLOOD 15 mg/dL (7-18)
[2019-06-26 23:51] LABS: ALANINE AMINOTRANSFERASE 48 U/L (12-78); ALBUMIN 3.5 g/dL (3.4-5.0); ALKALINE PHOSPHATASE 78 U/L (46-116); ASPARTATE AMINOTRANSFERASE 24 U/L (15-37); BILIRUBIN,DIRECT 0.1 mg/dL (0.0-0.2); BILIRUBIN,TOTAL 0.2 mg/dL (0.2-1.0)
[2019-06-27 00:10] VITALS: BP 146/80
--- NOTE | 2019-06-27 00:31 | NUR ---
Patient discharged to home in stable condition. Written and verbal after care instructions given. Patient verbalizes understanding of instruction. IV removed. Catheter intact and site benign. Pressure and 4x4 applied to site. No bleeding noted.
== END 2019-06-27 00:31 | disposition home or self-care (01) ==
LOC: ER 23:07
DX: R07.89 Other chest pain (principal); J45.909 Unspecified asthma, uncomplicated; F32.9 Major depressive disorder, single episode, unspecified; F41.9 Anxiety disorder, unspecified; Z91.018 Allergy to other foods; Z91.048 Other nonmedicinal substance allergy status; Z79.899 Other long term (current) drug therapy
CPT/HCPCS: 36415; 71045-TC; 80048-TC; 80076-TC; 84484-TC; 85025-TC

== ENCOUNTER 2020-05-13 22:03 | Emergency (ER) | payer OTHER ==
[~2020-05-13] VITALS: Ht 154.9 cm; Wt 108.9 kg
--- NOTE | 2020-05-13 22:25 | NUR ---
GISELL FROM HOME TO ER BED 12. AAOX4. NOT IN RESP DISTRESS. AMBULATORY. CAME IN FOR L & R MID BACK PAIN SINCE YESTERDAY THAT IS EXTENDING TO THE L & R UPPER ABDOMEN. PT RATES HER PAIN 01/12. SHARP AND INTERMITENT IN NATURE. PT DENIES N/V/D. DENIES DYSURIA. URINE COLLECTED AND SENT TO LAB. WAS AT THE BEDSIDE FOR EVAL. ORDERS RECEIVED NOTED AND CARRIED OUT.
[2020-05-13 22:26] LABS: BILIRUBIN,URINE Negative (NEGATIVE); BLOOD, URINE Negative Ery/uL (NEGATIVE); COLOR,URINE LIGHT YELLOW (YELLOW); LEUKOCYTE ESTERASE ,URINE Negative (NEGATIVE); NITRITE, URINE Negative (NEGATIVE); PROTEIN,URINE Negative (NEGATIVE); UGLUCOSE Negative (NEGATIVE); UROBILINOGEN,URINE 0.2 EU/dL (0.2)
[2020-05-13] MEDS ORDERED: KETOROLAC TROMETHAMINE INJ 60 MG/2 ML VIAL IM ONE ×2 (22:30→22:36)
[2020-05-14] MEDS ORDERED: HYDROCODONE/APAP 5/325MG TABLET PO ONE
[2020-05-14] MEDS ORDERED: HYDROCODONE/APAP 5/325MG TABLET ONE
[2020-05-14 00:10] VITALS: BP 135/77
== END 2020-05-14 00:10 | disposition home or self-care (01) ==
LOC: ER 22:08
DX: M87.852 Other osteonecrosis, left femur (principal); M87.851 Other osteonecrosis, right femur; R10.32 Left lower quadrant pain; R10.12 Left upper quadrant pain; J45.909 Unspecified asthma, uncomplicated; F32.9 Major depressive disorder, single episode, unspecified; F41.9 Anxiety disorder, unspecified; Z88.8 Allergy status to other drugs, medicaments and biological substances; Z91.018 Allergy to other foods; Z79.899 Other long term (current) drug therapy
CPT/HCPCS: 71045; 74176; 81003; 84703; 96372; 99285; J1885

== ENCOUNTER 2021-12-20 09:05 | Emergency (ER) | payer OTHER ==
[~2021-12-20] VITALS: Ht 157.5 cm; Wt 122.5 kg
[2021-12-20 09:12] VITALS: BP 130/76
--- NOTE | 2021-12-20 09:12 | NUR ---
c/o bilateral ear pain since yesterday 03/14 ps, 31 weeks , A1
[2021-12-20] MEDS ORDERED: NEOM10DR46 OT (09:20)
== END 2021-12-20 09:37 | disposition home or self-care (01) ==
LOC: ER 09:15
DX: O26.93 Pregnancy related conditions, unspecified, third trimester (principal); H60.93 Unspecified otitis externa, bilateral; Z3A.31 31 weeks gestation of pregnancy

== ENCOUNTER 2021-12-21 22:24 | Emergency (ER) | payer OTHER ==
[~2021-12-21] VITALS: Ht 157.5 cm; Wt 122.5 kg
[~2021-12-21 22:24] MED LIST changes: +NEOM10DR46 OT
[2021-12-21 23:37] VITALS: BP 143/74
--- NOTE | 2021-12-21 23:39 | NUR ---
PT BIBSELF C/O L EAR PAIN
--- NOTE | 2021-12-22 00:05 | NUR ---
Patient discharged to home in stable condition. Written and verbal after care instructions given. Patient verbalizes understanding of instruction.
== END 2021-12-22 00:06 | disposition home or self-care (01) ==
LOC: ER 22:34
DX: H60.501 Unspecified acute noninfective otitis externa, right ear (principal); J45.909 Unspecified asthma, uncomplicated; F32.A Depression, unspecified; F41.9 Anxiety disorder, unspecified; Z88.8 Allergy status to other drugs, medicaments and biological substances; Z79.899 Other long term (current) drug therapy; Z91.018 Allergy to other foods

== ENCOUNTER 2023-03-24 21:30 | Emergency (ER) | payer OTHER ==
[~2023-03-24] VITALS: Ht 157.5 cm; Wt 86.2 kg
[2023-03-24] MEDS ORDERED: ACETAMINOPHEN 325 MG TABLET ONE (22:43)
[2023-03-24] MEDS ORDERED: ACETAMINOPHEN 325 MG TABLET PO ONE (23:00)
[2023-03-24 23:07] LABS: APPEARANCE,URINE CLEAR (CLEAR); BILIRUBIN,URINE NEGATIVE (NEGATIVE); BLOOD, URINE NEGATIVE Ery/uL (NEGATIVE); COLOR,URINE YELLOW (YELLOW); KETONES,URINE TRACE mg/dL (NEGATIVE); LEUKOCYTE ESTERASE ,URINE NEGATIVE (NEGATIVE); NITRITE, URINE NEGATIVE (NEGATIVE); PH,URINE 5.5 (5.0-8.0); PROTEIN,URINE 1+ mg/dl (NEGATIVE); UGLUCOSE NEGATIVE (NEGATIVE); UROBILINOGEN,URINE 0.2 EU/dL (0.2)
[2023-03-24 23:12] LABS: CALCIUM, SERUM 9.3 mg/dL (8.5-10.1); CREATININE 0.7 mg/dL (0.6-1.3); POTASSIUM 3.6 mmol/L (3.5-5.1)
[2023-03-24 23:25] LABS: BASOPHILS # (AUTO) 0.1 K/uL (0.0-0.2); BASOPHILS % (AUTO) 0.7 % (0.0-2.0); EOSINOPHILS # (AUTO) 0.1 K/uL (0.0-0.7); EOSINOPHILS % (AUTO) 1.5 % (0.0-6.0); HEMATOCRIT 39 % (33-45); HEMOGLOBIN 12.9 g/dL (11.5-14.8); LYMPHOCYTES # (AUTO) 1.2 K/uL (0.8-4.8); LYMPHOCYTES % (AUTO) 13.4 % (20.0-44.0); MEAN CORPUSCULAR HEMOGLOBIN 28 PG (26.0-33.0); MEAN CORPUSCULAR HGB CONC 33 g/dl (31.0-36.0); MEAN CORPUSCULAR VOLUME 85 fL (82-100); MONOCYTES # (AUTO) 0.3 K/uL (0.1-1.30); MONOCYTES % (AUTO) 3.1 % (2.0-12.0); NEUTROPHILS % (AUTO) 81.3 % (43.0-81.0); PLATELET COUNT (AUTO) 279 K/uL (150-450); RED BLOOD CELL COUNT(AUTO) 4.62 MIL/uL (4.0-5.2); RED CELL DISTRIBUTION WIDTH 14.1 % (11.5-15.0); WHITE BLOOD COUNT (AUTO) 8.6 K/uL (4.3-11.0)
[2023-03-24 23:32] LABS: INR 0.97 (0.91-1.10); PARTIAL THROMBOPLASTIN TIME 30.5 SEC (24.3-34.3); PROTHROMBIN TIME 10.3 SECS (9.2-11.1)
[2023-03-24 23:48] LABS: ALBUMIN 3.6 g/dL (3.4-5.0); BILIRUBIN,DIRECT 0.1 mg/dL (0.0-0.2); BILIRUBIN,TOTAL 0.2 mg/dL (0.2-1.0); TOTAL PROTEIN, SERUM 7.9 g/dL (6.4-8.2)
[2023-03-24 23:57] LABS: ADD URINE CULTURE NO; BACTERIA,URINE 1+ /HPF (None Seen); RBC,URINE 0-2 /HPF (0-2); WBC,URINE 0-2 /HPF (0-3)
[2023-03-24 23:58] LABS: CALCIUM OXALATE CRYSTALS,UR Moderate /HPF (None Seen); MUCUS,URINE Moderate /LPF (None Seen)
[2023-03-25 00:32] VITALS: BP 141/78; TEMP 98.2; O2SAT 99
== END 2023-03-25 00:32 | disposition home or self-care (01) ==
LOC: ER 21:33
DX: O46.91 Antepartum hemorrhage, unspecified, first trimester (principal); O26.891 Other specified pregnancy related conditions, first trimester; R10.2 Pelvic and perineal pain; J45.909 Unspecified asthma, uncomplicated; F32.A Depression, unspecified; F41.9 Anxiety disorder, unspecified; Z3A.01 Less than 8 weeks gestation of pregnancy; Z88.8 Allergy status to other drugs, medicaments and biological substances; Z91.018 Allergy to other foods; Z79.899 Other long term (current) drug therapy
CPT/HCPCS: 36415; 76856-TC; 80048-TC; 80076-TC; 81001; 84702-TC; 85025-TC; 85730-TC

== ENCOUNTER 2023-06-05 19:45 | Emergency (ER) | payer OTHER ==
[~2023-06-05] VITALS: Ht 157.5 cm; Wt 113.4 kg
[2023-06-05 22:13] LABS: BASOPHILS % (AUTO) 0.4 % (0.0-2.0); EOSINOPHILS # (AUTO) 0.2 K/uL (0.0-0.7); EOSINOPHILS % (AUTO) 2.4 % (0.0-6.0); HEMATOCRIT 37 % (33-45); HEMOGLOBIN 12.3 g/dL (11.5-14.8); LYMPHOCYTES # (AUTO) 2.2 K/uL (0.8-4.8); LYMPHOCYTES % (AUTO) 29.9 % (20.0-44.0); MEAN CORPUSCULAR HEMOGLOBIN 28 PG (26.0-33.0); MEAN CORPUSCULAR HGB CONC 33 g/dl (31.0-36.0); MEAN CORPUSCULAR VOLUME 85 fL (82-100); MONOCYTES # (AUTO) 0.4 K/uL (0.1-1.30); MONOCYTES % (AUTO) 5.3 % (2.0-12.0); NEUTROPHILS # (AUTO) 4.6 K/uL (1.8-8.9); PLATELET COUNT (AUTO) 247 K/uL (150-450); RED BLOOD CELL COUNT(AUTO) 4.39 MIL/uL (4.0-5.2); RED CELL DISTRIBUTION WIDTH 13.8 % (11.5-15.0); WHITE BLOOD COUNT (AUTO) 7.5 K/uL (4.3-11.0)
[2023-06-05 22:22] LABS: CREATININE 0.5 mg/dL (0.6-1.3); POTASSIUM 3.4 mmol/L (3.5-5.1)
[2023-06-05 22:22] LABS: APPEARANCE,URINE TURBID (CLEAR); BILIRUBIN,URINE NEGATIVE (NEGATIVE); BLOOD, URINE NEGATIVE Ery/uL (NEGATIVE); COLOR,URINE DARK YELLOW (YELLOW); KETONES,URINE NEGATIVE (NEGATIVE); LEUKOCYTE ESTERASE ,URINE 1+ (NEGATIVE); NITRITE, URINE NEGATIVE (NEGATIVE); PROTEIN,URINE NEGATIVE (NEGATIVE); UGLUCOSE NEGATIVE (NEGATIVE); UROBILINOGEN,URINE 0.2 EU/dL (0.2)
[2023-06-05 22:27] LABS: ADD URINE CULTURE YES; BACTERIA,URINE Many /HPF (None Seen); RBC,URINE 0-2 /HPF (0-2); SQUAMOUS EPITHELIAL CELL,UR Rare /HPF (None Seen)
[2023-06-05 22:49] LABS: ALBUMIN 2.7 g/dL (3.4-5.0); BILIRUBIN,TOTAL 0.1 mg/dL (0.2-1.0); TOTAL PROTEIN, SERUM 7.3 g/dL (6.4-8.2)
[2023-06-05] MEDS ORDERED: CEPH500C2 PO (23:39)
[2023-06-05] MEDS ORDERED: ACETAMINOPHEN ES 500 MG TABLET ONE (23:47)
[2023-06-05] MEDS ORDERED: CEPHALEXIN MONOHYDRATE 500 MG CAPSULE PO ONE (23:47)
[2023-06-05 23:49] VITALS: BP 128/99; TEMP 98.5; O2SAT 99
[2023-06-05] MEDS: CEPHALEXIN MONOHYDRATE 500 MG CAPSULE PO ONE (23:49)
[2023-06-05] MEDS: ACETAMINOPHEN ES 500 MG TABLET PO ONE (23:49)
== END 2023-06-05 23:50 | disposition home or self-care (01) ==
LOC: ER 19:49
DX: O23.42 Unspecified infection of urinary tract in pregnancy, second trimester (principal); N39.0 Urinary tract infection, site not specified; R10.2 Pelvic and perineal pain; J45.909 Unspecified asthma, uncomplicated; F32.A Depression, unspecified; F41.9 Anxiety disorder, unspecified; Z3A.16 16 weeks gestation of pregnancy; Z91.018 Allergy to other foods; Z88.8 Allergy status to other drugs, medicaments and biological substances
CPT/HCPCS: 36415; 76805-TC; 80048-TC; 80076-TC; 81001; 83690-TC; 84702-TC; 85025-TC; 87086-TC

== ENCOUNTER 2023-12-08 00:59 | Emergency (ER) | payer OTHER ==
[~2023-12-08] VITALS: Ht 157.5 cm; Wt 111.1 kg
[~2023-12-08 00:59] MED LIST changes: +CEPH500C2 PO
[2023-12-08] MEDS ORDERED: ONDANSETRON HCL/PF 4 MG/2 ML VIAL ONE (01:20)
[2023-12-08] MEDS: IV NS 0.9% 500 ML BAG IV ONE (01:23)
[2023-12-08] MEDS: ONDANSETRON HCL/PF 4 MG/2 ML VIAL IVP ONE (01:23)
[2023-12-08 01:32] LABS: BASOPHILS % (AUTO) 0.5 % (0.0-2.0); EOSINOPHILS # (AUTO) 0.2 K/uL (0.0-0.7); EOSINOPHILS % (AUTO) 2.2 % (0.0-6.0); HEMATOCRIT 37 % (33-45); LYMPHOCYTES # (AUTO) 2.9 K/uL (0.8-4.8); LYMPHOCYTES % (AUTO) 36.1 % (20.0-44.0); MEAN CORPUSCULAR HEMOGLOBIN 27 PG (26.0-33.0); MEAN CORPUSCULAR HGB CONC 33 g/dl (31.0-36.0); MEAN CORPUSCULAR VOLUME 83 fL (82-100); MONOCYTES # (AUTO) 0.4 K/uL (0.1-1.30); MONOCYTES % (AUTO) 4.8 % (2.0-12.0); NEUTROPHILS # (AUTO) 4.5 K/uL (1.8-8.9); NEUTROPHILS % (AUTO) 56.4 % (43.0-81.0); PLATELET COUNT (AUTO) 270 K/uL (150-450); RED BLOOD CELL COUNT(AUTO) 4.46 MIL/uL (4.0-5.2); RED CELL DISTRIBUTION WIDTH 15.1 % (11.5-15.0)
[2023-12-08 01:44] LABS: INR 0.98 (0.91-1.10); PARTIAL THROMBOPLASTIN TIME 29.9 SEC (24.3-34.3); PROTHROMBIN TIME 10.4 SECS (9.2-11.1)
[2023-12-08 01:45] LABS: ALANINE AMINOTRANSFERASE 20 U/L (12-78); ALBUMIN 3.1 g/dL (3.4-5.0); ALKALINE PHOSPHATASE 90 U/L (46-116); ASPARTATE AMINOTRANSFERASE < 5 U/L (15-37); BILIRUBIN,DIRECT 0.1 mg/dL (0.0-0.2); BILIRUBIN,TOTAL 0.2 mg/dL (0.2-1.0); CALCIUM, SERUM 9.5 mg/dL (8.5-10.1); CARBON DIOXIDE 26 mmol/L (21-32); CHLORIDE 105 mmol/L (98-107); CREATININE 0.8 mg/dL (0.6-1.3); GLUCOSE 119 mg/dL (74-106); POTASSIUM 3.4 mmol/L (3.5-5.1); SODIUM SERUM 141 mmol/L (136-145); TOTAL PROTEIN, SERUM 7.2 g/dL (6.4-8.2); UREA NITROGEN, BLOOD 9 mg/dL (7-18)
[2023-12-08 02:40] VITALS: BP 110/67; TEMP 97.8; O2SAT 98
== END 2023-12-08 02:41 | disposition home or self-care (01) ==
LOC: ER 01:07
DX: R07.89 Other chest pain (principal); F41.9 Anxiety disorder, unspecified; J45.909 Unspecified asthma, uncomplicated; F32.A Depression, unspecified; Z79.51 Long term (current) use of inhaled steroids; Z79.52 Long term (current) use of systemic steroids; Z79.899 Other long term (current) drug therapy; Z91.018 Allergy to other foods; Z88.1 Allergy status to other antibiotic agents
CPT/HCPCS: 99285; 71045; 93005; 85025; 80048; 80076; 36415; 84484; 85730; J2405

== ENCOUNTER 2024-01-14 21:04 | Emergency (ER) | payer OTHER ==
[~2024-01-14] VITALS: Ht 167.6 cm; Wt 104.3 kg
[2024-01-14 22:14] VITALS: BP 135/79; TEMP 98.2
[2024-01-14] MEDS ORDERED: LORA-815 PO (22:28)
[2024-01-14] MEDS ORDERED: IBUP-1953 PO (22:28)
[2024-01-14 22:35] VITALS: O2SAT 99
== END 2024-01-14 22:38 | disposition home or self-care (01) ==
LOC: ER 21:08
DX: H69.93 Unspecified Eustachian tube disorder, bilateral (principal); J45.909 Unspecified asthma, uncomplicated; F32.A Depression, unspecified; F41.9 Anxiety disorder, unspecified; Z88.8 Allergy status to other drugs, medicaments and biological substances; Z91.018 Allergy to other foods

== ENCOUNTER 2024-03-15 01:04 | Emergency (ER) | payer OTHER ==
[~2024-03-15 01:04] MED LIST changes: +IBUP-1953 PO; +LORA-815 PO
== END 2024-03-15 04:20 | disposition left against medical advice (07) ==
LOC: ER 01:07
DX: R52 Pain, unspecified (principal); Z53.21 Procedure and treatment not carried out due to patient leaving prior to being seen by health care provider

== ENCOUNTER 2024-03-17 21:06 | Emergency (ER) | payer OTHER ==
[~2024-03-17] VITALS: Ht 157.5 cm; Wt 115.7 kg
[2024-03-17 23:15] VITALS: TEMP 98.6
[2024-03-18 00:26] LABS: BASOPHILS # (AUTO) 0.1 K/uL (0.0-0.2); BASOPHILS % (AUTO) 0.7 % (0.0-2.0); EOSINOPHILS # (AUTO) 0.1 K/uL (0.0-0.7); EOSINOPHILS % (AUTO) 1.2 % (0.0-6.0); HEMATOCRIT 39 % (33-45); HEMOGLOBIN 12.8 g/dL (11.5-14.8); LYMPHOCYTES # (AUTO) 2.4 K/uL (0.8-4.8); LYMPHOCYTES % (AUTO) 32.2 % (20.0-44.0); MEAN CORPUSCULAR HEMOGLOBIN 28 PG (26.0-33.0); MEAN CORPUSCULAR HGB CONC 33 g/dl (31.0-36.0); MEAN CORPUSCULAR VOLUME 85 fL (82-100); MONOCYTES # (AUTO) 0.4 K/uL (0.1-1.30); MONOCYTES % (AUTO) 4.7 % (2.0-12.0); NEUTROPHILS # (AUTO) 4.6 K/uL (1.8-8.9); NEUTROPHILS % (AUTO) 61.2 % (43.0-81.0); PLATELET COUNT (AUTO) 281 K/uL (150-450); RED BLOOD CELL COUNT(AUTO) 4.59 MIL/uL (4.0-5.2); RED CELL DISTRIBUTION WIDTH 14.6 % (11.5-15.0); WHITE BLOOD COUNT (AUTO) 7.6 K/uL (4.3-11.0)
[2024-03-18 00:44] LABS: CALCIUM, SERUM 8.8 mg/dL (8.5-10.1); CREATININE 0.7 mg/dL (0.6-1.3); POTASSIUM 3.7 mmol/L (3.5-5.1)
[2024-03-18 00:47] LABS: ALBUMIN 3.5 g/dL (3.4-5.0); BILIRUBIN,TOTAL 0.2 mg/dL (0.2-1.0); TOTAL PROTEIN, SERUM 7.7 g/dL (6.4-8.2)
[2024-03-18 01:34] LABS: APPEARANCE,URINE CLEAR (CLEAR); BILIRUBIN,URINE NEGATIVE (NEGATIVE); BLOOD, URINE LARGE Ery/uL (NEGATIVE); COLOR,URINE YELLOW (YELLOW); KETONES,URINE NEGATIVE (NEGATIVE); LEUKOCYTE ESTERASE ,URINE SMALL (NEGATIVE); NITRITE, URINE NEGATIVE (NEGATIVE); PROTEIN,URINE NEGATIVE (NEGATIVE); UGLUCOSE NEGATIVE (NEGATIVE); UROBILINOGEN,URINE 0.2 EU/dL (0.2)
[2024-03-18 01:45] LABS: PREGNANCY TEST URINE QUAL NEGATIVE (NEGATIVE)
[2024-03-18 01:56] LABS: ADD URINE CULTURE YES; BACTERIA,URINE 1+ /HPF (None Seen); RBC,URINE 21-50 /HPF (0-2)
[2024-03-18] MEDS ORDERED: NYST15OI TP (02:10)
[2024-03-18] MEDS ORDERED: SULF1TAB48 PO (02:10)
[2024-03-18] MEDS ORDERED: KETO10TA2 PO (02:10)
[2024-03-18 02:14] VITALS: BP 121/82; O2SAT 100
== END 2024-03-18 02:15 | disposition home or self-care (01) ==
LOC: ER 21:10
DX: B37.2 Candidiasis of skin and nail (principal); R10.2 Pelvic and perineal pain; J45.909 Unspecified asthma, uncomplicated; F32.A Depression, unspecified; F41.9 Anxiety disorder, unspecified; Z79.51 Long term (current) use of inhaled steroids; Z79.52 Long term (current) use of systemic steroids; Z79.899 Other long term (current) drug therapy; Z88.8 Allergy status to other drugs, medicaments and biological substances
CPT/HCPCS: 36415; 76856-TC; 80053-TC; 81001; 83690-TC; 84703-TC; 85025-TC

== ENCOUNTER 2024-05-19 15:45 | Emergency (ER) | payer OTHER ==
[~2024-05-19] VITALS: Ht 165.1 cm; Wt 115.7 kg
[~2024-05-19 15:45] MED LIST changes: +KETO10TA2 PO; +NYST15OI TP; +SULF1TAB48 PO
[2024-05-19] MEDS ORDERED: methylPREDNISolone SOD SUCC 125 MG/2ML VIAL ONE (17:52)
[2024-05-19] MEDS: methylPREDNISolone SOD SUCC 125 MG/2ML VIAL IV ONE (18:18)
[2024-05-19 18:22] LABS: BASOPHILS % (AUTO) 0.4 % (0.0-2.0); EOSINOPHILS % (AUTO) 0.9 % (0.0-6.0); HEMATOCRIT 38 % (33-45); HEMOGLOBIN 12.6 g/dL (11.5-14.8); LYMPHOCYTES # (AUTO) 0.6 K/uL (0.8-4.8); LYMPHOCYTES % (AUTO) 16.9 % (20.0-44.0); MEAN CORPUSCULAR HEMOGLOBIN 28 PG (26.0-33.0); MEAN CORPUSCULAR HGB CONC 33 g/dl (31.0-36.0); MEAN CORPUSCULAR VOLUME 84 fL (82-100); MONOCYTES # (AUTO) 0.4 K/uL (0.1-1.30); MONOCYTES % (AUTO) 11.4 % (2.0-12.0); NEUTROPHILS # (AUTO) 2.4 K/uL (1.8-8.9); NEUTROPHILS % (AUTO) 70.4 % (43.0-81.0); PLATELET COUNT (AUTO) 213 K/uL (150-450); RED BLOOD CELL COUNT(AUTO) 4.55 MIL/uL (4.0-5.2); RED CELL DISTRIBUTION WIDTH 13.7 % (11.5-15.0); WHITE BLOOD COUNT (AUTO) 3.4 K/uL (4.3-11.0)
[2024-05-19] MEDS ORDERED: ALBUTEROL FS 2.5 MG/3 ML VIAL.NEB ONE (18:26)
[2024-05-19 18:30] VITALS: O2SAT 97
[2024-05-19 18:30] LABS: CALCIUM, SERUM 8.8 mg/dL (8.5-10.1); CREATININE 0.7 mg/dL (0.6-1.3); POTASSIUM 4.1 mmol/L (3.5-5.1)
[2024-05-19] MEDS: ALBUTEROL FS 2.5 MG/3 ML VIAL.NEB NEB ONE (18:30)
[2024-05-19 18:44] VITALS: O2SAT 100; O2SAT 99
[2024-05-19] MEDS: KETOROLAC TROMETHAMINE 15 MG/ML VIAL IV ONE (18:53)
[2024-05-19] MEDS ORDERED: IBUPROFEN 400 MG TABLET ONE (19:05)
[2024-05-19] MEDS: IV NS 0.9% 1,000 ML BAG IV ONE (19:20)
[2024-05-19] MEDS: IBUPROFEN 400 MG TABLET PO ONE (19:22)
[2024-05-19] MEDS ORDERED: DOXY100C2 PO (21:38)
[2024-05-19] MEDS ORDERED: ACETAMINOPHEN 325 MG TABLET ONE (21:49)
[2024-05-19] MEDS: ACETAMINOPHEN 325 MG TABLET PO ONE (21:54)
[2024-05-19] MEDS ORDERED: PRED20TA PO (21:55)
[2024-05-19 21:56] VITALS: BP 133/69; TEMP 99.1; O2SAT 98
== END 2024-05-19 21:56 | disposition home or self-care (01) ==
LOC: ER 17:43
DX: J11.00 Influenza due to unidentified influenza virus with unspecified type of pneumonia (principal); F32.A Depression, unspecified; F41.9 Anxiety disorder, unspecified; J45.909 Unspecified asthma, uncomplicated; Z79.51 Long term (current) use of inhaled steroids; Z79.52 Long term (current) use of systemic steroids; Z79.899 Other long term (current) drug therapy; Z20.822 Contact with and (suspected) exposure to COVID-19
CPT/HCPCS: 99285; 96374; 71045; 96361; 87426; 93005; 87804 ×2; 85025; 80048; 36415; 94640; J2919; J7030; J1885

== ENCOUNTER 2024-07-31 22:48 | Emergency (ER) | payer OTHER ==
[~2024-07-31] VITALS: Ht 157.5 cm; Wt 108.9 kg
[~2024-07-31 22:48] MED LIST changes: +DOXY100C2 PO; +PRED20TA PO
[2024-08-01] VITALS (7 sets, daily range): BP systolic 99; BP diastolic 78; TEMP 98; O2SAT 97–100
[2024-08-01] MEDS ORDERED: IBUPROFEN 600 MG TABLET ONE (00:46)
[2024-08-01] MEDS: IPRATROPIUM NEB FS 0.5 MG/2.5 ML AMPUL.NEB NEB ONE (00:59)
[2024-08-01] MEDS: ALBUTEROL FS 2.5 MG/3 ML VIAL.NEB NEB ONE (00:59)
[2024-08-01] MEDS ORDERED: ALBUTEROL FS 2.5 MG/3 ML VIAL.NEB ONE (01:04)
[2024-08-01] MEDS ORDERED: IPRATROPIUM NEB FS 0.5 MG/2.5 ML AMPUL.NEB ONE (01:04)
[2024-08-01] MEDS: IBUPROFEN 600 MG TABLET PO ONE (01:14)
[2024-08-01] MEDS: IV NS 0.9% 1,000 ML IV ONE (01:14)
[2024-08-01] MEDS ORDERED: BUDE10.2 INH (02:07)
== END 2024-08-01 02:20 | disposition home or self-care (01) ==
LOC: ER 22:49
DX: J06.9 Acute upper respiratory infection, unspecified (principal); B97.89 Other viral agents as the cause of diseases classified elsewhere; M54.9 Dorsalgia, unspecified; R00.0 Tachycardia, unspecified; F32.A Depression, unspecified; F41.9 Anxiety disorder, unspecified; J45.901 Unspecified asthma with (acute) exacerbation; Z76.0 Encounter for issue of repeat prescription; Z79.51 Long term (current) use of inhaled steroids; Z79.52 Long term (current) use of systemic steroids; Z79.899 Other long term (current) drug therapy
CPT/HCPCS: 99283; 96360; 94640; J7030

== ENCOUNTER 2024-08-20 14:45 | Emergency (ER) | payer OTHER ==
[~2024-08-20] VITALS: Ht 157.5 cm; Wt 108.9 kg
[~2024-08-20 14:45] MED LIST changes: +BUDE10.2 INH
[2024-08-20 15:31] VITALS: BP 135/74; TEMP 98.3
[2024-08-20] MEDS ORDERED: CIPR10DR LEFT EAR (15:51)
[2024-08-20 16:03] VITALS: O2SAT 97
== END 2024-08-20 16:03 | disposition home or self-care (01) ==
LOC: ER 14:49
DX: H60.92 Unspecified otitis externa, left ear (principal); F32.A Depression, unspecified; F41.9 Anxiety disorder, unspecified; J45.909 Unspecified asthma, uncomplicated; Z79.51 Long term (current) use of inhaled steroids; Z79.52 Long term (current) use of systemic steroids; Z79.899 Other long term (current) drug therapy

== ENCOUNTER 2024-10-11 23:29 | Emergency (ER) | payer OTHER ==
[~2024-10-11] VITALS: Ht 157.5 cm; Wt 113.4 kg
[~2024-10-11 23:29] MED LIST changes: +CIPR10DR LEFT EAR
[2024-10-12 06:26] VITALS: BP 129/75; TEMP 98.2; O2SAT 99
== END 2024-10-12 06:27 | disposition home or self-care (01) ==
LOC: ER 23:51
DX: H61.23 Impacted cerumen, bilateral (principal); J45.909 Unspecified asthma, uncomplicated; Z79.51 Long term (current) use of inhaled steroids; Z79.52 Long term (current) use of systemic steroids; Z79.899 Other long term (current) drug therapy

== ENCOUNTER 2025-03-30 22:57 | Emergency (ER) | payer OTHER ==
[~2025-03-30] VITALS: Ht 157.5 cm; Wt 116.1 kg
[2025-03-31 00:17] VITALS: BP 116/56; TEMP 98.7; O2SAT 98
[2025-03-31] MEDS ORDERED: IBUPROFEN 600 MG TABLET ONE (01:18)
[2025-03-31] MEDS ORDERED: ACETAMINOPHEN ES 500 MG TABLET ONE (01:18)
[2025-03-31] MEDS: ACETAMINOPHEN ES 500 MG TABLET PO ONE (01:19)
[2025-03-31] MEDS: IBUPROFEN 600 MG TABLET PO ONE (01:19)
[2025-03-31] MEDS ORDERED: IBUP-1957 PO (01:43)
[2025-03-31] MEDS ORDERED: ACET-2030 PO (01:43)
[2025-03-31] MEDS ORDERED: KETO10TA2 PO (01:43)
== END 2025-03-31 02:02 | disposition home or self-care (01) ==
LOC: ER 22:58
DX: M25.512 Pain in left shoulder (principal); J45.909 Unspecified asthma, uncomplicated; Z79.51 Long term (current) use of inhaled steroids; Z79.899 Other long term (current) drug therapy; Z79.52 Long term (current) use of systemic steroids
CPT/HCPCS: 73030-TC